=== PATIENT | male | born 1960 | race Caucasian/White ===

== ENCOUNTER 2020-10-18 20:07 | Observation (INO) | payer OTHER, SELFPAY ==
[2020-10-18 20:17] VITALS: BP 208/112; PULSE 73; RESP 18; TEMP 36.5; O2SAT 98; BMI 23.5
--- NOTE | 2020-10-18 20:24 | CTR_ITS ---
PROCEDURE INFORMATION: Exam: CT Head Without Contrast Exam date and time: 10/18/2020 8:32 PM Age: 60 years old Clinical indication: Altered mental status/memory loss; Additional info: AMS TECHNIQUE: Imaging protocol: Computed tomography of the head without contrast. Radiation optimization: All CT scans at this facility use at least one of these dose optimization techniques: automated exposure control; mA and/or kV adjustment per patient size (includes targeted exams where dose is matched to clinical indication); or iterative reconstruction. COMPARISON: No relevant prior studies available. RADIATION DOSE METRICS: Total DLP (mGy-cm): 863.06 FINDINGS: Brain: Normal. No hemorrhage. Unremarkable white matter. No mass effect. Cerebral ventricles: No ventriculomegaly. Bones/joints: Unremarkable. No acute fracture. Paranasal sinuses: There is patchy mucosal thickening in the sinuses. Mastoid air cells: Visualized mastoid air cells are well aerated. Soft tissues: Unremarkable. CT/CT head wo con* [id number] IMPRESSION: No acute intracranial abnormality. Radiation Dose CTDIVOL = (mGy): DLP = 863.06 (mGy-cm)
--- NOTE | 2020-10-18 20:24 | XR_ITS ---
WS: [id number] Exam: XR chest 1V portable [id number] Date/Time of Exam: 10/18/2020 8:32 PM Reason For Exam: ams Comparison 01/24/2016. Findings: The lungs are clear and fully expanded. Costophrenic angles are sharp. No infiltrates. Bronchovascula r relief appears normal. Cardiac silhouette is unremarkable. Bony elements are intact. XR/XR chest 1V portable [id number] IMPRESSION: Unremarkable chest radiograph.
--- NOTE | 2020-10-18 20:25 | ECG_ITS ---
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 Measurements Intervals [place] Rate: 63 P: 17 [place]: 141 QRS: 2 QRSD: 94 T: -1 QT: 381 QTc: 390 Interpretive Statements SINUS RHYTHM MODERATE VOLTAGE CRITERIA FOR LVH, CONSIDER NORMAL VARIANT [MEETS CRITERIA IN ONE OF: R(aVL), S(V1), R(V5), R(V5/V6)+S(V1)] Compared to ECG 01/24/2016 07:57:03 Sinus bradycardia no longer present Electronically Signed On 10-19-2020 17:31:58 CDT by Mary Mckeon M.D. [id number]
[2020-10-18 20:49] VITALS: BP 223/117; PULSE 71; RESP 17; O2SAT 98
[2020-10-18 21:07] LABS: Basophils % 0.3 %; Eosinophils # 0.3 10^3/uL (0.0-0.8); Eosinophils % 4.8 %; Hematocrit 41.1 % (42.0-52.0); Hemoglobin 14.4 g/dL (11.7-16.6); Lymphocytes # 1.5 10^3/uL (0.8-4.8); Lymphocytes % 25.4 %; Mean Corpuscular Hemoglobin 30.3 pg (28.0-34.0); Mean Corpuscular Volume 86.5 fL (80-94); Mean Platelet Volume 9.7 fL (7.4-10.4); Monocytes # 0.5 10^3/uL (0.2-0.9); Monocytes % 8.1 %; Neutrophils # 3.56 10^3/uL (1.8-7.7); Neutrophils % 61.1 %; Nucleated Red Blood Cells % 0 %; Platelet Count 239 10^3/cmm (130-400); Red Blood Count 4.75 10^6/uL (4.1-5.3); Red Cell Distribution Width 12.3 % (12.1-15.1); White Blood Count 5.8 10^3/uL (4.0-10.0)
--- NOTE | 2020-10-18 21:07 | ED_ITS ---
HPI - Altered Mental Status General: Chief Complaint: Altered Mental Status Stated Complaint: NEURO SYMPTOMS Time Seen by Provider: 10/18/20 20:26 Source: patient Mode of arrival: ambulatory Limitations: no limitations History of Present Illness: HPI narrative: 60-year-old male has had confusion all day along with difficulty with memory. He is not remember going to work today or getting dressed to come to the ER. He also did not realize his was working or had a job and she states she has been working for months. Here he is able answer all my questions appropriately but does not remember anything that he is done throughout the day. He has no history of memory loss like this. Denies any head injuries. He denies any headache or fever. He denies any abdominal pain. Y was in the room he started having some chest pain. Associated symptoms: Deny depression Review of Systems Const: Denies: fever(s), chills, body aches or change in appetite Eyes: Denies: blurry vision or eye discomfort ENMT: Denies: throat pain or dental pain Card: Reports: chest pain Resp: Denies: dyspnea GI: Denies: abdominal pain, nausea, vomiting or diarrhea : Denies: dysuria Musc: Denies: neck pain or back pain Skin/Breast: Denies: rash Neuro: Reports: confusion Psych: Denies: depression Hipolito/Lymph: Denies: easy bruising All/Imm: Denies: urticaria Physical Exam Const: COMMON NORMALS: no acute distress, patient oriented x3 and healthy appearing HENMT: COMMON NORMALS: normocephalic and atraumatic HEAD & SCALP: normocephalic and atraumatic Eye: COMMON NORMALS: Equal, round and reactive pupils present and EOMs intact bilaterally PUPIL: Yes Equal, round and reactive pupils present Neck/C-Spine: COMMON NORMALS: full ROM and supple Chest: COMMONS NORMALS: normal inspection of the chest and normal palpation of entire chest wall Resp: COMMON NORMALS: normal respiratory effort, No retractions, No use of accessory muscles and clear to auscultation bilaterally AUSCULTATION: clear to auscultation bilaterally Cardio: COMMON NORMALS: regular rate, regular rhythm and No murmurs present (Cardio) RATE: regular rate RHYTHM: regular rhythm GI: COMMON NORMALS: Normal to inspection, nondistended, normoactive bowel sounds present, Soft to palpation, non-tender and no masses PALPATION: Yes Soft to palpation Extremity: COMMON NORMALS: normal to inspection and full ROM Neuro: COMMON NORMALS: patient oriented x3, moves all extremities and no focal motor deficits Psych: COMMON NORMALS: mental status grossly normal, Normal thought process present and cooperative THOUGHT PROCESS: Normal thought process present Skin: COMMON NORMALS: no rashes or lesions noted and no wounds GENERAL SKIN EXAM: no rashes or lesions noted Course Vital Signs: Vital signs: Vital Signs Temperature 97.7 F 10/18/20 20:17 Pulse Rate 68 10/18/20 21:21 Respiratory Rate 13 10/18/20 21:21 Blood Pressure 196/115 10/18/20 21:21 Pulse Oximetry 97 10/18/20 21:21 MDM - Altered Mental Status MDM Narrative: Medical decision making narrative: Juanpablo presents here with altered mental status with memory loss. He has no signs of acute stroke and CT head here is normal. Blood work is all normal as well. He has no headache or neck pain or fever no signs of meningitis. I spoke to the hospitalist and will admit for observation. Lab Data: Labs: Lab Results 10/18/20 10/18/20 10/18/20 Range/Units 21:00 21:00 21:00 WBC 5.8 (4.0-10.0) 10^3/ uL RBC 4.75 (4.1-5.3) 10^6/u L Hgb 14.4 (11.7-16.6) g/dL Hct 41.1 L (42.0-52.0) % MCV 86.5 (80-94) fL MCH 30.3 (28.0-34.0) pg MCHC 35.0 (30.0-36.0) g/dL RDW 12.3 (12.1-15.1) % Plt Count 239 (130-400) 10^3/c mm MPV 9.7 (7.4-10.4) fL Neut % (Auto) 61.1 % Lymph % (Auto) 25.4 % [place] % (Auto) 8.1 % Eos % (Auto) 4.8 % Baso % (Auto) 0.3 % Neut # (Auto) 3.56 (1.8-7.7) 10^3/u L Lymph # (Auto) 1.5 (0.8-4.8) 10^3/u L [place] # (Auto) 0.5 (0.2-0.9) 10^3/u L Eos # (Auto) 0.3 (0.0-0.8) 10^3/u L Baso # (Auto) 0.0 (0.0-0.1) 10^3/u L Nucleated RBC % (a uto) 0 % Nucleated RBCs # 0.0 /100WBC PT 12.90 (12.1-14.9) SECO NDS INR 0.95 (0.8-1.2) Sodium 138 (136-145) mmol/L Potassium 4.1 (3.5-5.1) mmol/L Chloride 101 (98-107) mmol/L Carbon Dioxide 25 (22-29) mmol/L Anion Gap 16.1 (5-19) BUN 21 (8-23) mg/dL Creatinine 1.2 (0.7-1.2) mg/dL GFR Calculation 61.6 L (90-130) mL/min Glucose 104 (65-115) mg/dL Calculated Osmolal ity 289 (285-295) mOsm/k g Calcium 9.5 (8.5-10.5) mg/dL Total Bilirubin 0.5 (0.15-1.2) mg/dL AST 24 (0-40) U/L ALT 26 (0-41) U/L Alkaline Phosphata se 84 (40-130) IU/L Ammonia (16-60) umol/L Troponin T Baselin e (0-15) ng/L Total Protein 7.9 (6.6-8.7) g/dL Albumin 5.2 (3.5-5.2) g/dL Globulin 2.7 (1.3-4.6) g/dL 10/18/20 10/18/20 Range/Units 21:00 21:00 WBC (4.0-10.0) 10^3/ uL RBC (4.1-5.3) 10^6/u L Hgb (11.7-16.6) g/dL Hct (42.0-52.0) % MCV (80-94) fL MCH (28.0-34.0) pg MCHC (30.0-36.0) g/dL RDW (12.1-15.1) % Plt Count (130-400) 10^3/c mm MPV (7.4-10.4) fL Neut % (Auto) % Lymph % (Auto) % [place] % (Auto) % Eos % (Auto) % Baso % (Auto) % Neut # (Auto) (1.8-7.7) 10^3/u L Lymph # (Auto) (0.8-4.8) 10^3/u L [place] # (Auto) (0.2-0.9) 10^3/u L Eos # (Auto) (0.0-0.8) 10^3/u L Baso # (Auto) (0.0-0.1) 10^3/u L Nucleated RBC % (a uto) % Nucleated RBCs # /100WBC PT (12.1-14.9) SECO NDS INR (0.8-1.2) Sodium (136-145) mmol/L Potassium (3.5-5.1) mmol/L Chloride (98-107) mmol/L Carbon Dioxide (22-29) mmol/L Anion Gap (5-19) BUN (8-23) mg/dL Creatinine (0.7-1.2) mg/dL GFR Calculation (90-130) mL/min Glucose (65-115) mg/dL Calculated Osmolal ity (285-295) mOsm/k g Calcium (8.5-10.5) mg/dL Total Bilirubin (0.15-1.2) mg/dL AST (0-40) U/L ALT (0-41) U/L Alkaline Phosphata se (40-130) IU/L Ammonia 30 (16-60) umol/L Troponin T Baselin e 11 (0-15) ng/L Total Protein (6.6-8.7) g/dL Albumin (3.5-5.2) g/dL Globulin (1.3-4.6) g/dL Imaging Data^: CT Head: Radiologist's impression: [address] [address] [address] Scan Report Signed Patient: Juanpablo Bales Unit #: [id number] : 1960 Age/Sex: 60 / M ADM Date: 10/18/20 Loc: ER Room/Bed: Attending Dr: Ordering Provider/Ordering MD: Marvin Biggs MD Date of Service: 10/18/20 Procedure(s): CT head wo con* [id number] Accession Number(s): [id number] Report Number: [id number] PROCEDURE INFORMATION: Exam: CT Head Without Contrast Exam date and time: 10/18/2020 8:32 PM Age: 60 years old Clinical indication: Altered mental status/memory loss; Additional info: AMS TECHNIQUE: Imaging protocol: Computed tomography of the head without contrast. Radiation optimization: All CT scans at this facility use at least one of these dose optimization techniques: automated exposure control; mA and/or kV adjustment per patient size (includes targeted exams where dose is matched to clinical indication); or iterative reconstruction. COMPARISON: No relevant prior studies available. RADIATION DOSE METRICS: Total DLP (mGy-cm): 863.06 FINDINGS: Brain: Normal. No hemorrhage. Unremarkable white matter. No mass effect. Cerebral ventricles: No ventriculomegaly. Bones/joints: Unremarkable. No acute fracture. Paranasal sinuses: There is patchy mucosal thickening in the sinuses. Mastoid air cells: Visualized mastoid air cells are well aerated. Soft tissues: Unremarkable. CT/CT head wo con* [id number] cx: Attestation: I personally reviewed and interpreted this imaging study as follows: My impression: no acute abnormality EKG Data^: EKG 1: Attestation: I personally reviewed and interpreted this EKG as follows: EKG interpretation date: 10/18/20 EKG interpretation time: 21:16 Interpretation: bsr gr [address] or t wave abnormalities qrs 94 qtc 388 Discharge Plan Discharge Prescriptions: No Action Allergy 1 tab PO DAILY@0700 RF: 0 Advil 200 mg Tablet 200 - 400 mg PO Q6H PRN (Reason: ATHRITIS) RF: 0 Coding Level of Care Code ED Public Relations Sales Marketing for Chg Fwd Exam Comprehensive
[2020-10-18 21:20] LABS: INR 0.95 (0.8-1.2)
[2020-10-18 21:21] VITALS: BP 196/115; PULSE 68; RESP 13; O2SAT 97
[2020-10-18 21:24] LABS: Ammonia 30 umol/L (16-60)
[2020-10-18 21:27] LABS: Alanine Aminotransferase 26 U/L (0-41); Albumin Level 5.2 g/dL (3.5-5.2); Alkaline Phosphatase 84 IU/L (40-130); Anion Gap 16.1 (5-19); Aspartate Amino Transferase 24 U/L (0-40); Blood Urea Nitrogen 21 mg/dL (8-23); Calcium 9.5 mg/dL (8.5-10.5); Carbon Dioxide 25 mmol/L (22-29); Chloride 101 mmol/L (98-107); Globulin 2.7 g/dL (1.3-4.6); Glomerular Filtration Rate 61.6 mL/min (90-130); Glucose 104 mg/dL (65-115); Osmolality Calculated 289 mOsm/kg (285-295); Potassium 4.1 mmol/L (3.5-5.1); Sodium 138 mmol/L (136-145); Total Bilirubin 0.5 mg/dL (0.15-1.2); Total Protein 7.9 g/dL (6.6-8.7)
[2020-10-18 21:30] LABS: Troponin(5th) Baseline 11 ng/L (0-15)
--- NOTE | 2020-10-18 22:10 | PM.HP ---
Providers/Chief Complaint Primary Care Provider: Denis Stout DO Chief Complaint: NEURO SYMPTOMS History of Present Illness Juanpablo Bales is a 60 year old male who does not have significant past medical or surgical history presented today after a brief episode of confusion. is at the bedside who is stating that today when she was at work at [employer], she checked her phone around 4-5 PM and noticed 5 missed calls of her which made her very anxious. When she called back, her was very confused and was not making any sense, he had no clue that his currently works at [employer] which she has been for last few years, he was not able to recall events from the day that he came back from his work etc. called her sister to go check on Mr. Bales. No strokelike symptoms were witnessed. 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 He drinks occasionally, last beer was 2 days ago, no recent fever, productive cough, abdominal pain or dysuria. Of note, has been noticing sleep apnea spells of her , excessive snoring at night and lethargy throughout the day, however Mr. Bales is attributing his fatigue and lethargy to being overactive. Diagnostics in the ER showed hypertensive urgency(196/115 mmHg) for which he received labetalol 10 mg, normal CBC and BMP, TSH normal B12 low normal, abnormal UA, CT head unremarkable Requested urine culture added B12 p.o. regimen and thiamine Review of Systems Const: Reports: body aches, fatigue and malaise Eyes: Denies: change in vision ENMT: Denies: throat pain Card: Denies: chest pain Resp: Denies: dyspnea GI: Denies: abdominal pain : Denies: flank pain Musc: Reports: back pain and muscle cramps Skin/Breast: Denies: rash Neuro: Denies: headache(s) Psych: Denies: anxiety Endo: Denies: polyuria Hipolito/Lymph: Denies: easy bruising All/Imm: Denies: urticaria Medications/Allergies Home Medications Medication Instructions Recorded Confirmed Last Taken Type Allergy 1 tab PO DAILY@0700 04/10/18/20 10/18/20 History ibuprofen [Advil] 200 - 400 mg PO Q6H PRN 10/18/20 10/18/20 10/18/20 History Allergies Allergy/AdvReac Type Severity Reaction Status Date / Time No Known Allergies Allergy Verified 10/18/20 20:17 PFSH Acute PFSH: Medical History No pertinent past medical history Surgical History No pertinent past surgical history Family History Other Family history non-contributory Social History Smoking and tobacco status: never smoked Alcohol intake: current Alcohol intake frequency: few times a month Alcohol type: beer Substance/Drug Use: never Household members: spouse Housing: House Vitals/I&O/Wt Last Vital Signs Temp 97.7 F 10/18/20 20:17 Pulse 68 10/18/20 21:21 Resp 13 10/18/20 21:21 BP 196/115 10/18/20 21:21 Pulse Ox 97 10/18/20 21:21 Weight last 48 hrs Weight 62.142 kg Physical Exam Narrative: EXAM NARRATIVE: Patient was laying supine when entered the room at the bedside Appears stated age Very somnolent however was able to answer my questions appropriately S1, S2 no signs of heart failure Abdomen soft nontender No active neurological deficits Bilateral conjunctival hyperemia Lower extremity no edema gangrene or ulcer Appropriate mood and affect No acute respiratory distress Bilateral breath sounds without adventitious rhonchi or crackles No active signs of meningitis Bradycardia heart rate in 60s on telemetry Data : 10/18/20 21:00 10/18/20 21:00 A&P Assessment and plan (1) Fatigue: Status: Acute (2) Delirium: Status: Acute Additional A&P Information Acute delirium Abnormal UA noted requested urine cultures we will start him on ceftriaxone Patient back to baseline however very drowsy, positive history for excessive snoring at night and lethargy throughout the day, he will need outpatient sleep study Low normal B12 will add p.o. cyanocobalamin regimen Normal TSH, We will add thiamine, drinks alcohol occasionally CT head unremarkable, patient considers himself very active, and he loves to cut wood, Hypertensive urgency, He will need at least 2-3 antihypertensives for now I would use lisinopril and amlodipine and monitor his blood pressure if it stays high would recommend diuretic regimen TSH normal Would add drug screen, noticed bilateral conjunctival hyperemia Reproducible left-sided chest pain, I will give him ketorolac x1, troponin unremarkable, EKG sinus bradycardia, no signs of intracranial hypertension Full code Cardiac diet DVT prophylaxis Lovenox Attestations Medical Necessity Statement*: Anticipating discharge in less than 48 hours will need overnight monitoring because of acute delirious episode, hypertensive urgency and bradycardia Time Spent in Patient Care: 30mins Coding Level of Care Code Acute Body Repairer for Ana Polanco Diagnoses Fatigue R53.83 Delirium R41.0
[2020-10-18] MEDS: labetalol 5 mg/mL SDV 20mL 10 MG IVP (22:41)
[2020-10-18 22:43] VITALS: BP 201/102; PULSE 57; RESP 14; O2SAT 96
[2020-10-18 22:55] VITALS: BP 171/94; PULSE 60; RESP 16; TEMP 36.6; O2SAT 97
[2020-10-18 23:55] VITALS: BP 155/90; PULSE 65; RESP 18; TEMP 36.6; O2SAT 97
[2020-10-19] VITALS (8 sets, daily range): BP systolic 114–173; BP diastolic 71–85; PULSE 55–78; RESP 14–18; TEMP 36.3–37.1; O2SAT 92–97
[2020-10-19] MEDS: lisinopril 10 mg Tablet PO ×2 (00:10→08:36)
[2020-10-19 00:12] LABS: Glucose Point of Care 186 mg/dL (70-110)
[2020-10-19 00:21] LABS: Thyroid Stimulating Hormone 3.47 uIU/mL (0.27-4.20); Vitamin B12 328 pg/mL (232-1245)
[2020-10-19 00:41] LABS: Add Urine Microscopic? YES; Bacteria Urine 1+ /hpf; Bilirubin Urine Neg (Negative); Blood Urine Neg (Negative); Glucose Urine UA Norm (Normal); Ketones Urine Negative (Negative); Leukocyte Esterase Urine Trace (Negative); Nitrate Urine Negative (Negative); Protein Urine Neg (Negative); RBC Urine 0-4 /hpf (0-2); Squamous Epithelial Cell Urine 0-4 /hpf (0-5); Urine Appearance Clear (CLEAR); Urine Color Yellow (Yellow); Urobilinogen Urine Norm (Negative); pH Urine 5 (5-7)
--- NOTE | 2020-10-19 03:05 | ECG_ITS ---
[facility] ED Test Date: 2020-10-19 Pat Name: Juanpablo Bales Department: Room: 255 Gender: Male Community Support Professional: : 1960 Requested By: Marvin Biggs Order Number: [id number] Jose Eduardo MD: Mary Mckeon M.D. Measurements Intervals [place] Rate: 56 P: 50 [place]: 154 QRS: 26 QRSD: 95 T: 22 QT: 396 QTc: 385 Interpretive Statements SINUS BRADYCARDIA NONSPECIFIC T-WAVE ABNORMALITY Compared to ECG 10/18/2020 21:16:25 T-wave abnormality now present Sinus rhythm no longer present Electronically Signed On 10-19-2020 17:46:38 CDT by Mary Mckeon M.D. [id number]
[2020-10-19 03:22] LABS: Troponin 5 6HR 13.06 ng/L (0-15); Troponin 5 6HR Delta 2.06 ng/L (0-12)
[2020-10-19 04:12] LABS: Estmated Average Glucose 108; Hemoglobin A1C 5.4 % (4.0-6.0)
[2020-10-19 05:09] LABS: ABG PCO2 47.6 mmHg (35-45); ABG PH Result 7.39 (7.35-7.45); Arterial Blood Gas Hematocrit 42.1 % (42-52); Base Excess ABG 2.6 mmol/L (-2.0-2.0); Blood Gas Operator Identificat JB; Blood Gas Sample Site Brachial, right; Blood Gas Sample Type Arterial; HCO3 ABG 28.4 mmol/L (22-26); Oxygen Device ROOM AIR; PO2 ABG 71.2 mmHg (80.0-100.0)
[2020-10-19] MEDS: cefTRIAXone 1,000 MG in sodium chloride 0.9% (plus) 50 ML 100 MG IV (06:11)
[2020-10-19] MEDS: enoxaparin 40 mg/0.4 mL Syringe SUBCUT (06:11)
[2020-10-19] MEDS: cyanocobalamin 1,000 mcg Tablet 1000 MCG PO (08:36)
[2020-10-19] MEDS: amlodipine 10 mg Tablet PO (08:36)
--- NOTE | 2020-10-19 12:57 | MRR_ITS ---
PROCEDURE INFORMATION: Exam: MR Head Without Contrast Exam date and time: 10/19/2020 6:20 PM Age: 60 years old Clinical indication: Pain; Headache; Additional info: Possible TIA TECHNIQUE: Imaging protocol: MR of the head without contrast. Total images: 224 COMPARISON: CT head wo con* [id number] 10/18/2020 8:47 PM FINDINGS: Brain: No abnormal signal on the diffusion-weighted sequence to suggest restrictive diffusion or cytotoxic edema thus no evidence of active or acute intracranial pathologic process. No acute or subacute infarction, hemorrhagic event, mass or neoplastic process, vascular malformation, generalized edema or demyelination evident. Mild small vessel ischemic disease with senile periventricular leukomalacia. Prominent Virchow Mal spaces. No visible amyloid or hemosiderin deposits. Cerebral ventricles: Normal. No ventriculomegaly. Bones/joints: Unremarkable. Paranasal sinuses: Mild chronic left maxillary, ethmoid, and sphenoid sinusitis. No visible active paranasal sinus disease or mastoiditis within the [id number]. Mastoid air cells: Normal as visualized. No mastoid effusion. Orbital cavity: Orbital structures as imaged intact. Soft tissues: Unremarkable. MR/MR head wo con* [id number] IMPRESSION: 1. Currently no visible evidence for acute or active intracranial pathologic process. 2. Mild small vessel ischemic disease with senile periventricular leukomalacia. 3. Mild chronic left maxillary, ethmoid, and sphenoid sinusitis.
[2020-10-19] MEDS: lisinopril 20 mg Tablet PO (13:37)
--- NOTE | 2020-10-19 17:03 | PM.PN ---
Subjective Subjective: Interval history: Admitted overnight for confusion. H&P and labs noted. Currently lying comfortably in bed with at bedside. Denies any nausea, vomiting, headache, chest pain. Complaining of feeling tired. Not confused anymore. Moving all 4 limbs appropriately. Family anxious regarding etiology. States at baseline he is a very active person does not have any angina or chest pressure. Non-smoker. Vitals/I&O/Wt Last Vital Signs Temp 97.4 F L 10/19/20 16:00 Pulse 55 L 10/19/20 16:00 Resp 14 10/19/20 16:00 BP 122/73 10/19/20 16:00 Pulse Ox 95 10/19/20 16:00 10/19/20 10/19/20 10/19/20 06:59 14:59 22:59 Intake Total 50 / 50 840 / 840 Output Total 0 / 0 Balance 50 / 50 840 / 840 Weight last 48 hrs Weight 62.142 kg Physical Exam Narrative: EXAM NARRATIVE: General: No acute distress, AO x3 HEENT: PERRLA, pupils bilaterally equal and reactive Chest: Normal vesicular breath sounds, no added sounds, equal good air entry bilaterally CVS: S1-S2 regular, no murmurs, no tachycardia, no gallops, no rubs Abdomen: Soft, nontender, no organomegaly, bowel sounds present Neuro: No focal deficits, no facial deformity, AO x3, power 5/5 in all limbs Data : 10/18/20 21:00 10/18/20 21:00 A&P Assessment and plan (1) Pre-syncope: Status: Acute (2) Fatigue: Status: Acute (3) Hypertension: Status: Acute Additional A&P Information Acute delirium/presyncope on admission: Most likely secondary to hypertensive urgency. Cannot rule out TIA. No signs of angina or arrhythmia overnight. No signs of UTI. Patient does not have any dysuria. Stop ceftriaxone. Check MRI to rule out TIA. Echocardiogram. CT head on admission negative for any acute pathology. Hypertension: Hypertensive urgency resolved. Does not have a past medical history of hypertension. Continue with amlodipine 10 mg. Increase lisinopril. Goal blood pressure 20% of presenting blood pressure. Patient will most likely need sleep study and the stress test was done as an outpatient. Full code Cardiac diet DVT prophylaxis Lovenox Attestations Medical Necessity Statement*: Requires further hospitalization for work-up of presyncope. Time Spent in Patient Care: Greater than 35 minutes (>than 50% of time spent in counselling and/or direct pt care on unit). Coding Level of Care Code Acute Database Marketing Specialist for Chg Fwd Diagnoses Pre-syncope R55 Fatigue R53.83 Hypertension I10
--- NOTE | 2020-10-19 18:24 | PC.NURSE ---
AT APPROX. 1800 PT TRANSPORTED TO MRI
[2020-10-19 18:53] LABS: Amphetamines Screen Urine Negative (Negative); Barbiturates Screen Urine Negative (Negative); Benzodiazepines Screen Urine Negative (Negative); Cocaine Screen Urine Negative (Negative); Opiate Screen Urine Negative (Negative); PCP Screen Urine Negative (Negative); THC Screen Urine Negative (Negative)
[2020-10-19 19:10] LABS: Iron 90 ug/dL (59-158); Percent Saturation 32.7 % (20-50); Total Iron Binding Capacity 275 mcg/dl; Unsaturated Iron Binding 185 ug/dL (112-347)
[2020-10-19 19:19] LABS: Cholesterol 185 mg/dL (0-200); HDL Cholesterol 42 mg/dL (60-100); LDL Cholesterol Calculated 114 mg/dL (50-129); Thyroid Stimulating Hormone 3.64 uIU/mL (0.27-4.20); Triglycerides 147 mg/dL (0-150); VLDL Cholestrol Calculation 29 mg/dL (0-30)
[2020-10-20 00:16] VITALS: BP 130/71; PULSE 63; RESP 17; TEMP 36.5; O2SAT 95
[2020-10-20 04:06] VITALS: BP 126/76; PULSE 76; RESP 17; TEMP 36.6; O2SAT 95
[2020-10-20] MEDS: enoxaparin 40 mg/0.4 mL Syringe SUBCUT (04:33)
--- NOTE | 2020-10-20 07:00 | USCV_ITS ---
Juanpablo Bales Age: 60 Gender: M : 1960 Exam Date: 10/20/2020 06:59 Ordering Phys: Robe Garner MD Technologist: Exam Location: [facility] [place] Indication: TIA BP: 130 / 73 HR: 55 Rhythm: Sinus Technical Quality: Good MEASUREMENTS (Male / Female) Normal Values 2D ECHO LV Diastolic Diameter PLAX 4.1 cm 4.2 - 5.9 / 3.9 - 5.3 cm LV Systolic Diameter PLAX 2.5 cm IVS Diastolic Thickness 1.1 cm 0.6 - 1.0 / 0.6 - 0.9 cm IVS Systolic Thickness 1.5 cm LVPW Diastolic Thickness 1.2 cm 0.6 - 1.0 / 0.6 - 0.9 cm LVPW Systolic Thickness 1.6 cm LVOT Diameter 2.0 cm LV Ejection Fraction 2D Teich 69.7 % LV Ejection Fraction MOD 2C 64.5 % LV Ejection Fraction 2C AL 64.5 % LA Diameter 3.5 cm LA Width 3.8 cm LA Height 4.7 cm RA Width 3.4 cm RA Height 4.8 cm M-MODE LV Diastolic Diameter MM 4.8 cm 4.2 - 5.9 / 3.9 - 5.3 cm LV Systolic Diameter MM 3.1 cm LV Ejection Fraction MM Teich 65.3 % IVS Diastolic Thickness MM 1.3 cm 0.6 - 1.0 / 0.6 - 0.9 cm IVS Systolic Thickness MM 1.7 cm LVPW Diastolic Thickness MM 1.0 cm 0.6 - 1.0 / 0.6 - 0.9 cm LVPW Systolic Thickness MM 1.8 cm RV Diastolic Diameter MM 1.6 cm Aortic Annulus Diameter 3.4 cm LA Ao Ratio MM 1.2 MV E Point Septal Separation 0.9 cm DOPPLER AV Peak Velocity 131.0 cm/s LVOT Peak Velocity 103.0 cm/s AV Area Cont Eq vti 2.9 cm squared AV Area Cont Eq pk 2.5 cm squared MV Area PHT 5.0 cm squared Mitral E to A Ratio 1.2 MV E' Velocity 42.0 cm/s Mitral E to MV E' Ratio 9.4 Mitral E to LV E' Lateral Ratio 7.7 Mitral E to LV E' Septal Ratio 12.2 TR Peak Velocity 158.3 cm/s TR Peak Gradient 10.0 mmHg TV Peak E Velocity 80.0 cm/s Right Atrial Pressure 3.0 mmHg Pulmonary Artery Systolic Pressu 13.0 mmHg PV Peak Velocity 95.0 cm/s FINDINGS Left Ventricle Normal left ventricular size, systolic function and wall thickness, with no regional wall motion abnormalities. Left ventricular ejection fraction is estimated at 65 %. Normal diastolic function. Right Ventricle Normal right ventricular size and systolic function. Right ventricular systolic pressure 13 mmHg. Right Atrium Normal right atrial size. Left Atrium Normal left atrial size. Mitral Valve Structurally normal mitral valve. No mitral valve stenosis. Trace mitral valve regurgitation. Aortic Valve Aortic valve not well visualized. Probably trileaflet aortic valve. No aortic valve stenosis. No aortic valve regurgitation. Tricuspid Valve Structurally normal tricuspid valve. Trace tricuspid valve regurgitation. Pulmonic Valve Pulmonic valve not well visualized. No pulmonary valve stenosis. No significant pulmonary valve regurgitation. Pericardium No pericardial effusion. Aorta Normal size aortic root and proximal ascending aorta. CONCLUSIONS 1. Normal left ventricular size, systolic function and wall thickness, with no regional wall motion abnormalities. Left ventricular ejection fraction is estimated at 65 %. Normal diastolic function. 2. Normal right ventricular size and systolic function. 3. No significant valvular abnormality. 4. Normal pulmonary artery pressure. 5. No prior similar studies to compare. Mary Mckeon MD (Electronically Signed) Final Date: 20 October 2020 12:26 S
[2020-10-20 07:58] VITALS: BP 125/75; PULSE 63; RESP 16; TEMP 36.7; O2SAT 93
[2020-10-20] MEDS: lisinopril 20 mg Tablet 40 MG PO (08:24)
[2020-10-20] MEDS: amlodipine 10 mg Tablet PO (08:25)
[2020-10-20] MEDS: cyanocobalamin 1,000 mcg Tablet 1000 MCG PO (08:25)
--- NOTE | 2020-10-20 10:12 | P.DS_ITS ---
Discharge Providers Date of Admission: 10/19/20 03:50 Date of Discharge: October 20, 2020 Attending Provider at Admission: Stanley Gill MD Attending Provider at Discharge: Robe Garner MD Primary Care Provider: Denis Stout DO Diagnoses at Discharge Discharge Diagnosis (1) Pre-syncope: Status: Acute (2) Fatigue: Status: Acute (3) Hypertension: Status: Acute Reason for Visit Reason for Visit: NEURO SYMPTOMS Hospital Course Hospital Course Juanpablo Bales is a 60 year old male who does not have significant past medical or surgical history presented today after a brief episode of confusion. is at the bedside who is stating that today when she was at work at [employer], she checked her phone around 4-5 PM and noticed 5 missed calls of her which made her very anxious. When she called back, her was very confused and was not making any sense, he had no clue that his currently works at [employer] which she has been for last few years, he was not able to recall events from the day that he came back from his work etc. called her sister to go check on Mr. Bales. No strokelike symptoms were witnessed. 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 He drinks occasionally, last beer was 2 days ago, no recent fever, productive cough, abdominal pain or dysuria. Of note, has been noticing sleep apnea spells of her , excessive snoring at night and lethargy throughout the day, however Mr. Bales is attributing his fatigue and lethargy to being overactive. On presentation to the ER patient was hypertensive urgency. He was admitted to the hospital for further evaluation of confusion and delirium. He was started on 2 hypertensive including amlodipine and lisinopril. His blood pressure came down appropriately. Other causes of her symptoms including a stroke was ruled out with a negative MRI, redness ruled out with a stable telemetry during hospitalization. Echocardiogram was done which was within normal limits as well. He is on discharge hemodynamic stable condition with advised to take amlodipine and lisinopril daily going forward and to maintain a blood pressure diary for next 2 weeks and follow-up with his primary care provider for a repeat blood pressure check and adjustment of medications as needed along with BMP. Patient is also due date a possible cardiac stress test as an outpatient. Physical Exam Narrative: EXAM NARRATIVE: General: No acute distress, AO x3 HEENT: PERRLA, pupils bilaterally equal and reactive Chest: Normal vesicular breath sounds, no added sounds, equal good air entry bilaterally CVS: S1-S2 regular, no murmurs, no tachycardia, no gallops, no rubs Abdomen: Soft, nontender, no organomegaly, bowel sounds present Neuro: No focal deficits, no facial deformity, AO x3, power 5/5 in all limbs Discharge Data Data Completed and Pending: Completed Studies During Hospitalization Category Date Time Status CT head wo con* 7 0450 Urgent Cat Scan 10/18/20 20:24 Completed XR chest 1V viviana ble [id number] Urgent Exams 10/18/20 20:24 Completed MR head wo con* 7 [id number] Routine MRI 10/19/20 12:57 Completed Pending at discharge Category Date Time Status Urine Culture Sta t Lab 10/19/20 00:19 Results CV echo complete* [id number] Routine Ultrasound 10/20/20 07:00 Taken Labs from last 24 hours 10/19/20 10/19/20 10/19/20 02:47 02:47 00:19 Iron 90 TIBC 275 % Saturation 32.7 Unsat Iron Binding 185 Triglycerides 147 Cholesterol 185 LDL Cholesterol, C alc 114 Total VLDL Cholest reji 29 HDL Cholesterol 42 L Cholesterol/HDL Ra otoniel 4.40 TSH 3.64 Urine Opiates Scre en Negative Ur Barbiturates Sc reen Negative Ur Phencyclidine S crn Negative Ur Amphetamines Sc reen Negative U Benzodiazepines Scrn Negative Urine Cocaine Scre en Negative U Marijuana (THC) Screen Negative Addt'l Data from Hospital Stay: Laboratory Results WBC 5.8 10^3/uL (4.0- 10.0) 10/18/20 21:00 RBC 4.75 10^6/uL (4.1 -5.3) 10/18/20 21:00 Hgb 14.4 g/dL (11.7-1 6.6) 10/18/20 21:00 Hct 41.1 % (42.0-52.0 ) L 10/18/20 21:00 MCV 86.5 fL (80-94) 10/18/20 21:00 MCH 30.3 pg (28.0-34. 0) 10/18/20 21:00 MCHC 35.0 g/dL (30.0-3 6.0) 10/18/20 21:00 RDW 12.3 % (12.1-15.1 ) 10/18/20 21:00 Plt Count 239 10^3/cmm (130 -400) 10/18/20 21:00 MPV 9.7 fL (7.4-10.4) 10/18/20 21:00 Neut % (Auto) 61.1 % 10/18/20 21:00 Lymph % (Auto) 25.4 % 10/18/20 21:00 [place] % (Auto) 8.1 % 10/18/20 21:00 Eos % (Auto) 4.8 % 10/18/20 21:00 Baso % (Auto) 0.3 % 10/18/20 21:00 Neut # (Auto) 3.56 10^3/uL (1.8 -7.7) 10/18/20 21:00 Lymph # (Auto) 1.5 10^3/uL (0.8- 4.8) 10/18/20 21:00 [place] # (Auto) 0.5 10^3/uL (0.2- 0.9) 10/18/20 21:00 Eos # (Auto) 0.3 10^3/uL (0.0- 0.8) 10/18/20 21:00 Baso # (Auto) 0.0 10^3/uL (0.0- 0.1) 10/18/20 21:00 Nucleated RBC % (a uto) 0 % 10/18/20 21:00 Nucleated RBCs # 0.0 /100WBC 10/18/20 21:00 PT 12.90 SECONDS (12 .1-14.9) 10/18/20 21:00 INR 0.95 (0.8-1.2) 10/18/20 21:00 Specimen Type Arterial 10/19/20 04:46 Sample Site Brachial, right 10/19/20 04:46 ABG pH 7.39 (7.35-7.45) 10/19/20 04:46 ABG pCO2 47.6 mmHg (35-45) H 10/19/20 04:46 ABG pO2 71.2 mmHg (80.0-1 00.0) L 10/19/20 04:46 ABG HCO3 28.4 mmol/L (22-2 6) H 10/19/20 04:46 ABG Base Excess 2.6 mmol/L (-2.0- 2.0) H 10/19/20 04:46 Judah Test N/a 10/19/20 04:46 Hematocrit 42.1 % (42-52) 10/19/20 04:46 O2 Delivery Device Room air 10/19/20 04:46 FiO2 21.0 % 10/19/20 04:46 Pool Cleaner ID Adonay 10/19/20 04:46 Sodium 138 mmol/L (136-1 45) 10/18/20 21:00 Potassium 4.1 mmol/L (3.5-5 .1) 10/18/20 21:00 Chloride 101 mmol/L (98-10 7) 10/18/20 21:00 Carbon Dioxide 25 mmol/L (22-29) 10/18/20 21:00 Anion Gap 16.1 (5-19) 10/18/20 21:00 BUN 21 mg/dL (8-23) 10/18/20 21:00 Creatinine 1.2 mg/dL (0.7-1. 2) 10/18/20 21:00 GFR Calculation 61.6 mL/min (90-1 30) L 10/18/20 21:00 Glucose 104 mg/dL (65-115 ) 10/18/20 21:00 POC Glucose 186 mg/dL (70-110 ) H 10/19/20 00:08 Estimat Average Gl ucose 108 10/19/20 02:47 Hemoglobin A1c 5.4 % (4.0-6.0) 10/19/20 02:47 Calculated Osmolal ity 289 mOsm/kg (285- 295) 10/18/20 21:00 Calcium 9.5 mg/dL (8.5-10 .5) 10/18/20 21:00 Iron 90 ug/dL (59-158) 10/19/20 02:47 TIBC 275 mcg/dl 10/19/20 02:47 % Saturation 32.7 % (20-50) 10/19/20 02:47 Unsat Iron Binding 185 ug/dL (112-34 7) 10/19/20 02:47 Total Bilirubin 0.5 mg/dL (0.15-1 .2) 10/18/20 21:00 AST 24 U/L (0-40) 10/18/20 21:00 ALT 26 U/L (0-41) 10/18/20 21:00 Alkaline Phosphata se 84 IU/L (40-130) 10/18/20 21:00 Ammonia 30 umol/L (16-60) 10/18/20 21:00 Troponin T Baselin e 11 ng/L (0-15) 10/18/20 21:00 Troponin T Hi Sens 6Hr 13.06 ng/L (0-15) 10/19/20 02:47 Troponin T Hi Sens 6Hr Delta 2.06 ng/L (0-12) 10/19/20 02:47 Total Protein 7.9 g/dL (6.6-8.7 ) 10/18/20 21:00 Albumin 5.2 g/dL (3.5-5.2 ) 10/18/20 21:00 Globulin 2.7 g/dL (1.3-4.6 ) 10/18/20 21:00 Triglycerides 147 mg/dL (0-150) 10/19/20 02:47 Cholesterol 185 mg/dL (0-200) 10/19/20 02:47 LDL Cholesterol, C alc 114 mg/dL (50-129 ) 10/19/20 02:47 Total VLDL Cholest reji 29 mg/dL (0-30) 10/19/20 02:47 HDL Cholesterol 42 mg/dL (60-100) L 10/19/20 02:47 Cholesterol/HDL Ra otoniel 4.40 mg/dL (1.0-5 .00) 10/19/20 02:47 Vitamin B12 328 pg/mL (232-12 45) 10/18/20 21:00 TSH 3.64 uIU/mL (0.27 -4.20) 10/19/20 02:47 Urine Color Yellow (Yellow) 10/19/20 00:19 Urine Appearance Clear (CLEAR) 10/19/20 00:19 Urine pH 5 (5-7) 10/19/20 00:19 Ur Specific Gravit y 1.010 (1.005-1.0 30) 10/19/20 00:19 Urine Protein Neg (Negative) 10/19/20 00:19 Urine Glucose (UA) Norm (Normal) 10/19/20 00:19 Urine Ketones Negative (Negati ve) 10/19/20 00:19 Urine Blood Neg (Negative) 10/19/20 00:19 Urine Nitrate Negative (Negati ve) 10/19/20 00:19 Urine Bilirubin Neg (Negative) 10/19/20 00:19 Urine Urobilinogen Norm mg/dL (Negat sasha) 10/19/20 00:19 Ur Leukocyte Fartun ase Trace (Negative) H 10/19/20 00:19 Urine RBC 0-4 /hpf (0-2) H 10/19/20 00:19 Urine WBC 5-10 /hpf (0-5) H 10/19/20 00:19 Ur Squamous Epith Cells 0-4 /hpf (0-5) H 10/19/20 00:19 Amorphous Sediment Not Reportable 10/19/20 00:19 Urine Bacteria 1+ /hpf (NONE) H 10/19/20 00:19 Urine Opiates Scre en Negative ng/mL (N egative) 10/19/20 00:19 Ur Barbiturates Sc reen Negative ng/mL (N egative) 10/19/20 00:19 Ur Phencyclidine S crn Negative ng/mL (N egative) 10/19/20 00:19 Ur Amphetamines Sc reen Negative ng/mL (N egative) 10/19/20 00:19 U Benzodiazepines Scrn Negative ng/mL (N egative) 10/19/20 00:19 Urine Cocaine Scre en Negative ng/mL (N egative) 10/19/20 00:19 U Marijuana (THC) Screen Negative ng/mL (N egative) 10/19/20 00:19 Impressions Chest X-Ray 10/18/20 20:24 IMPRESSION: Unremarkable chest radiograph. Head CT 10/18/20 20:24 IMPRESSION: No acute intracranial abnormality. Radiation Dose CTDIVOL = (mGy): DLP = 863.06 (mGy-cm) Head MRI 10/19/20 12:57 IMPRESSION: 1. Currently no visible evidence for acute or active intracranial pathologic process. 2. Mild small vessel ischemic disease with senile periventricular leukomalacia. 3. Mild chronic left maxillary, ethmoid, and sphenoid sinusitis. Vitals: Last Vital Signs Temp 98.1 F 10/20/20 07:58 Pulse 63 10/20/20 07:58 Resp 16 10/20/20 07:58 BP 125/75 10/20/20 07:58 Pulse Ox 93 10/20/20 07:58 Discharge Plan Discharge Patient Disposition: Home Condition: Stable Prescriptions: New lisinopril 20 mg Tablet 40 mg PO DAILY Qty: 60 RF: 0 amlodipine 10 mg Tablet 10 mg PO DAILY Qty: 30 RF: 0 Continued Allergy 1 tab PO DAILY@0700 RF: 0 Advil 200 mg Tablet 200 - 400 mg PO Q6H PRN (Reason: ATHRITIS) RF: 0 Discharge Orders: Discharge Order (Routine); Ordered 10/20/20 Ordered By: Robe Garner Referrals: Denis Stout DO [Primary Care Provider] - 11/03/20 9:30 am Discharge Diet: Cardiac Discharge Activity: Resume usual activity Patient Instructions: Lisinopril (By mouth), Amlodipine (By mouth), Hypertension, Opioid Safety Activity Restrictions/Additional Instructions: Please check your BP at home and maintain BP diary. Follow with BP diary with your PCP in 2 weeks for further adjustment of meds. Repeat BMP in 2 weeks Outpatient Stress test Discharge Attestations Time Spent in Discharge Care*: greater than 30 min Specific Discharge Activities: educating patient, educating and/or supporting family/caregiver, discussing with case resolution specialist/social workers/dc planners, documenting/other paperwork and evaluating patient/reviewing data Status at Discharge: Cognitive status at discharge: cognitively intact , Behavioral status at discharge: cooperative , Functional status at discharge: independent ambulation Overall status at discharge: patient is back to baseline Quality Metrics Clinical Quality Measures During this hospital stay, did patient experience: None Coding Level of Care Code Acute Chg FW DC note Diagnoses Pre-syncope R55 Fatigue R53.83 Hypertension I10
[2020-10-20 11:26] VITALS: BP 125/75; PULSE 63; RESP 16; TEMP 36.7; O2SAT 93
== END 2020-10-20 11:27 | disposition home or self-care (01) ==
LOC: ER 22:16 → MEDSURG 10-19 06:49
PROVIDERS: Admitting Provider Internal Medicine; Emergency Provider Emergency Medicine; PCP Internal Medicine; Visit Provider Student in an Organized Health Care Education/Training Program
DX: R55 Syncope and collapse (principal); I10 Essential (primary) hypertension; R53.83 Other fatigue; R41.0 Disorientation, unspecified
CPT/HCPCS: 36415; 36416; 70450; 70551; 71045; 80053; 80061; 80306; 81001; 82140; 82607; 82803; 82962; 83036; 83540; 83550; 84443; 84484; 85025; 85610; 87086; 93005; 93306; 96365; 96372; 99285; G0378; J0696; J1650; J3490

== ENCOUNTER 2021-02-25 07:55 | Outpatient (CLI) | payer OTHER, SELFPAY | END 2021-02-25 07:56 | disposition home or self-care (01) | LOC: SLEEP 08:00 | PROVIDERS: PCP Internal Medicine; Visit Provider Nurse Practitioner Family | DX: G47.10 Hypersomnia, unspecified (principal); R06.83 Snoring; R53.83 Other fatigue | CPT/HCPCS: 95810 ==

== ENCOUNTER 2021-12-25 19:53 | Inpatient (IN) | payer OTHER, SELFPAY ==
[2021-12-25 20:10] VITALS: BP 95/63; PULSE 89; RESP 16; TEMP 36.4; O2SAT 100
--- NOTE | 2021-12-25 20:24 | XRR_ITS ---
PROCEDURE INFORMATION: Exam: XR Chest Exam date and time: 12/25/2021 9:14 PM Age: 61 years old Clinical indication: Angina; Additional info: Cp TECHNIQUE: Imaging protocol: Radiologic exam of the chest. Views: 1 view. COMPARISON: CR XR chest 1V portable [id number] 10/18/2020 8:29 PM FINDINGS: Lungs: Unremarkable. No consolidation. Pleural spaces: Unremarkable. No pleural effusion. No pneumothorax. Heart/Mediastinum: Unremarkable. No cardiomegaly. Bones/joints: Unremarkable. XR/XR chest 1V portable [id number] IMPRESSION: No acute findings.
[2021-12-25 20:34] LABS: Basophils % 0.2 %; Eosinophils # 0.2 10^3/uL (0.0-0.8); Eosinophils % 4.6 %; Hematocrit 37.1 % (42.0-52.0); Lymphocytes # 1.6 10^3/uL (0.8-4.8); Lymphocytes % 31.2 %; Mean Corpuscular Hemoglobin 30.5 pg (28.0-34.0); Mean Corpuscular Volume 87.1 fl (80-94); Mean Platelet Volume 10.4 fL (7.4-10.4); Monocytes # 0.5 10^3/uL (0.2-0.9); Monocytes % 10.4 %; Neutrophils # 2.77 10^3/uL (1.8-7.7); Neutrophils % 53.4 %; Nucleated Red Blood Cells % 0 %; Platelet Count 262 10^3/cmm (130-400); Red Blood Count 4.26 10^6/uL (4.1-5.3); Red Cell Distribution Width 12.7 % (12.1-15.1); White Blood Count 5.2 10^3/uL (4.0-10.0)
[2021-12-25 20:52] LABS: Alanine Aminotransferase 23 U/L (0-41); Albumin Level 4.8 g/dL (3.5-5.2); Alkaline Phosphatase 78 IU/L (40-130); Anion Gap 19.3 (5-19); Aspartate Amino Transferase 17 U/L (0-40); Blood Urea Nitrogen 54 mg/dL (8-23); Calcium 9.4 mg/dL (8.5-10.5); Carbon Dioxide 24 mmol/L (22-29); Chloride 94 mmol/L (98-107); Globulin 2.4 g/dL (1.3-4.6); Glomerular Filtration Rate 8.9 mL/min (90-130); Glucose 98 mg/dL (65-115); Osmolality Calculated 291 mOsm/kg (285-295); Potassium 4.3 mmol/L (3.5-5.1); Sodium 133 mmol/L (136-145); Total Bilirubin 0.6 mg/dL (0.15-1.2); Total Protein 7.2 g/dL (6.6-8.7)
[2021-12-25 20:53] LABS: Troponin(5th) Baseline 20 ng/L (0-15)
[2021-12-25 20:59] LABS: Creatine Phosphokinase 581 U/L (39-308)
[2021-12-25 21:09] LABS: CKMB 5.3 ng/mL (0-10.4)
--- NOTE | 2021-12-25 21:21 | ED_ITS ---
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 He states he is also only urinated twice since then and felt extremely weak. Denies any vomiting or diarrhea denies any chest pain denies any fevers. Associated symptoms: Reports syncope; Deny chest pain, dyspnea, headache(s), nausea, rash or vomiting Review of Systems Const: Denies: fever(s), chills, body aches or change in appetite Eyes: Denies: blurry vision or eye discomfort ENMT: Denies: throat pain or dental pain Card: Reports: syncope; Denies: chest pain Resp: Denies: dyspnea GI: Denies: abdominal pain, nausea, vomiting or diarrhea : Denies: dysuria Musc: Denies: neck pain or back pain Skin/Breast: Denies: rash Neuro: Reports: weakness in extremities; Denies: headache(s) Psych: Denies: depression Hipolito/Lymph: Denies: easy bruising All/Imm: Denies: urticaria PFSH ED PFSH: Medical History Delirium Fatigue No pertinent past medical history Surgical History No pertinent past surgical history Family History Brother Chronic pain Drug abuse Mother Hypertension Father Heart disease Sister AIDS Other Family history non-contributory Social History Smoking and tobacco status: never smoked Alcohol intake: current Alcohol intake frequency: few times a month Alcohol type: beer Household members: spouse Housing: House Physical Exam Const: COMMON NORMALS: patient oriented x3 GENERAL APPEARANCE: ill appearing HENMT: COMMON NORMALS: normocephalic and atraumatic HEAD & SCALP: normocephalic and atraumatic Eye: COMMON NORMALS: Equal, round and reactive pupils present and EOMs intact bilaterally PUPIL: Yes Equal, round and reactive pupils present Neck/C-Spine: COMMON NORMALS: full ROM and supple Chest: COMMONS NORMALS: normal inspection of the chest and normal palpation of entire chest wall Resp: COMMON NORMALS: normal respiratory effort, No retractions, No use of accessory muscles and clear to auscultation bilaterally AUSCULTATION: clear to auscultation bilaterally Cardio: COMMON NORMALS: regular rate, regular rhythm and No murmurs present (Cardio) RATE: regular rate RHYTHM: regular rhythm GI: COMMON NORMALS: Normal to inspection, nondistended, normoactive bowel sounds present, Soft to palpation, non-tender and no masses PALPATION: Yes Soft to palpation Extremity: COMMON NORMALS: normal to inspection and full ROM Neuro: COMMON NORMALS: patient oriented x3, moves all extremities and no focal motor deficits Psych: COMMON NORMALS: mental status grossly normal, Normal thought process present and cooperative THOUGHT PROCESS: Normal thought process present Skin: COMMON NORMALS: no rashes or lesions noted and no wounds GENERAL SKIN EXAM: no rashes or lesions noted Course Vital Signs: Vital signs: Vital Signs Temperature 97.5 F L 12/25/21 20:10 Pulse Rate 89 12/25/21 20:10 Respiratory Rate 16 12/25/21 20:10 Blood Pressure 95/63 12/25/21 20:10 Pulse Oximetry 100 12/25/21 20:10 [facility] - General Adult Medical Decision Making Patient presents here with heat exhaustion along with acute kidney injury likely from dehydration patient does have an elevated creatinine I spoke to the [facility] pitalist and will admit here for observation for IV hydration. Patient stable while here. Lab Data : 12/25/21 20:20 12/25/21 20:20 Laboratory Results WBC 5.2 10^3/uL (4.0-10.0) 12/25/21 20:20 RBC 4.26 10^6/uL (4.1-5.3) 12/25/21 20:20 Hgb 13.0 g/dL (11.7-16.6) 12/25/21 20:20 Hct 37.1 % (42.0-52.0) L 12/25/21 20:20 MCV 87.1 fl (80-94) 12/25/21 20:20 MCH 30.5 pg (28.0-34.0) 12/25/21 20:20 MCHC 35.0 g/dL (30.0-36.0) 12/25/21 20:20 RDW 12.7 % (12.1-15.1) 12/25/21 20:20 Plt Count 262 10^3/cmm (130-400) 12/25/21 20:20 MPV 10.4 fL (7.4-10.4) 12/25/21 20:20 Neut % (Auto) 53.4 % 12/25/21 20:20 Lymph % (Auto) 31.2 % 12/25/21 20:20 [place] % (Auto) 10.4 % 12/25/21 20:20 Eos % (Auto) 4.6 % 12/25/21 20:20 Baso % (Auto) 0.2 % 12/25/21 20:20 Neut # (Auto) 2.77 10^3/uL (1.8-7.7) 12/25/21 20:20 Lymph # (Auto) 1.6 10^3/uL (0.8-4.8) 12/25/21 20:20 [place] # (Auto) 0.5 10^3/uL (0.2-0.9) 12/25/21 20:20 Eos # (Auto) 0.2 10^3/uL (0.0-0.8) 12/25/21 20:20 Baso # (Auto) 0.0 10^3/uL (0.0-0.1) 12/25/21 20:20 Nucleated RBC % (auto) 0 % 12/25/21 20:20 Nucleated RBCs # 0.0 /100WBC 12/25/21 20:20 Sodium 133 mmol/L (136-145) L 12/25/21 20:20 Potassium 4.3 mmol/L (3.5-5.1) 12/25/21 20:20 Chloride 94 mmol/L (98-107) L 12/25/21 20:20 Carbon Dioxide 24 mmol/L (22-29) 12/25/21 20:20 Anion Gap 19.3 (5-19) H 12/25/21 20:20 BUN 54 mg/dL (8-23) H 12/25/21 20:20 Creatinine 6.4 mg/dL (0.7-1.2) H* 12/25/21 20:20 GFR Calculation 8.9 mL/min (90-130) L 12/25/21 20:20 Glucose 98 mg/dL (65-115) 12/25/21 20:20 Calculated Osmolality 291 mOsm/kg (285-295) 12/25/21 20:20 Calcium 9.4 mg/dL (8.5-10.5) 12/25/21 20:20 Total Bilirubin 0.6 mg/dL (0.15-1.2) 12/25/21 20:20 AST 17 U/L (0-40) 12/25/21 20:20 ALT 23 U/L (0-41) 12/25/21 20:20 Alkaline Phosphatase 78 IU/L (40-130) 12/25/21 20:20 Creatine Kinase 581 U/L (39-308) H* 12/25/21 20:20 CK-MB (CK-2) 5.3 ng/mL (0-10.4) 12/25/21 20:20 CK-MB (CK-2) Rel Index % (0.0-5.3) 12/25/21 20:20 Troponin T Baseline 20 ng/L (0-15) H 12/25/21 20:20 Total Protein 7.2 g/dL (6.6-8.7) 12/25/21 20:20 Albumin 4.8 g/dL (3.5-5.2) 12/25/21 20:20 Globulin 2.4 g/dL (1.3-4.6) 12/25/21 20:20 EKG Data EKG 1: I personally reviewed and interpreted this EKG as follows: EKG interpretation date: 12/25/21 EKG interpretation time: 20:15 Interpretation: nsr hr [address] or t wave abnormalities qrs 98 [id number] Discharge Plan Discharge Patient Disposition: Placed in Observation Clinical Impression: Acute kidney injury, Heat exhaustion Coding Level of Care Code ED Wagon Driver Salesperson for Chg Fwd Exam Comprehensive
--- NOTE | 2021-12-25 22:24 | ECG_ITS ---
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 Measurements Intervals [place] Rate: 58 P: 45 PA: 135 QRS: 22 QRSD: 105 T: 34 QT: 404 QTc: 399 Interpretive Statements SINUS BRADYCARDIA Compared to ECG 10/19/2020 03:02:07 T-wave abnormality no longer present Electronically Signed On 12-26-2021 8:49:09 CDT by Edmar Garrett M.D. [id number]
[2021-12-25 22:50] VITALS: BP 95/55; PULSE 61; RESP 18; O2SAT 94
[2021-12-25 23:11] LABS: Troponin 5 2HR 14.95 ng/L (0-15)
[2021-12-25 23:12] LABS: Troponin 5 2HR Delta -5.05 ABS# (0-10)
[2021-12-25 23:23] VITALS: BMI 27.4
[2021-12-25 23:49] VITALS: BP 105/60; PULSE 61; RESP 17; TEMP 36.8; O2SAT 97
[2021-12-26] MEDS: dextrose 5%-sod chloride 0.9% 1,000 ML 100 ML IV ×2 (00:45→08:36)
--- NOTE | 2021-12-26 02:24 | ECG_ITS ---
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 Measurements Intervals [place] Rate: 53 P: 51 NC: 176 QRS: 42 QRSD: 77 T: 58 QT: 427 QTc: 403 Interpretive Statements SINUS BRADYCARDIA POSSIBLE LEFT ATRIAL ENLARGEMENT [-0.1mV P-WAVE IN V1/V2] INTERPRETATION BASED ON A DEFAULT AGE OF 40 YEARS Compared to ECG 12/25/2021 22:22:51 No significant changes Electronically Signed On 12-26-2021 8:49:57 CDT by Edmar Garrett M.D. [id number] f
[2021-12-26 02:29] LABS: Alanine Aminotransferase 19 U/L (0-41); Albumin Level 4.2 g/dL (3.5-5.2); Alkaline Phosphatase 71 IU/L (40-130); Anion Gap 19.2 (5-19); Aspartate Amino Transferase 13 U/L (0-40); Blood Urea Nitrogen 55 mg/dL (8-23); Calcium 8.3 mg/dL (8.5-10.5); Carbon Dioxide 21 mmol/L (22-29); Chloride 98 mmol/L (98-107); Globulin 2.4 g/dL (1.3-4.6); Glomerular Filtration Rate 8.7 mL/min (90-130); Glucose 128 mg/dL (65-115); Magnesium 2.6 mg/dL (1.7-2.3); Osmolality Calculated 295 mOsm/kg (285-295); Potassium 4.2 mmol/L (3.5-5.1); Sodium 134 mmol/L (136-145); Total Bilirubin 0.5 mg/dL (0.15-1.2); Total Protein 6.6 g/dL (6.6-8.7)
[2021-12-26 02:31] LABS: Troponin 5 6HR 15.11 ng/L (0-15)
--- NOTE | 2021-12-26 02:41 | USR_ITS ---
PROCEDURE INFORMATION: Exam: US Retroperitoneal; Complete; Kidneys and Bladder Exam date and time: 12/26/2021 3:03 AM Age: 61 years old Clinical indication: Other: Input and output made them worry about hydro; Patient HX: Evaluate for hydronephrosis; Additional info: Evalute for hydronephrosis TECHNIQUE: Imaging protocol: Real-time ultrasound of the retroperitoneum with image documentation. Complete exam focused on the kidneys and bladder. COMPARISON: No relevant prior studies available. FINDINGS: Right kidney: The right kidney measures 10.7 x 6.5 x 5.3 cm. There is slightly increased right renal echogenicity. No stones. No hydronephrosis. Left kidney: The left kidney measures 9.4 x 5.6 x 5.3 cm. There is slightly increased left renal echogenicity. No stones. No hydronephrosis. Urinary bladder: Distended urinary bladder. US/US renal BI* [id number] IMPRESSION: No acute findings. Slightly increased renal echogenicity which may be seen with medical renal disease.
--- NOTE | 2021-12-26 02:43 | PM.HP ---
Providers/Chief Complaint Admitting Physician: Taylor Mcdowell MD Primary Care Provider: Denis Stout DO Chief Complaint: back pain/ leg pain History of Present Illness Juanpablo Bales is a 61 year old male with a PMH HTN prsenting today with 2 days of generalized bodyache, malaise, headache. Upon evaluation here he was found to have elevated cr at 6.4, high anion gap. He has been netta for the past 2 days, up to 14 hrs a day. 2 days ago he had 3 gallons of ice tea to keep hydrated. yesterday he had 3-4 bottles of water. Today he started to experience headache and somehwat light headed therefor came to ER. no h/o LOC, syncope. No fever, chills, NVD , URI symptoms. No recent changes in medication. takes lisinopril and amlodipine as prescribed. Has taken 4 advils yesterday due to generalized bodyache. He has noticed reduced urine output today. No changes in colr that he has noted.denies dysuria, increased straining, prior prostate issues. Denies past renal stones Review of Systems General: Reports: 10 or more systems reviewed and unremarkable except in HPI and below Const: Denies: fever(s), chills or body aches Eyes: Denies: change in vision, blurry vision or photophobia ENMT: Reports: hoarseness; Denies: throat pain, enlarged tonsils, odynophagia or nasal congestion Card: Denies: chest pain, palpitations, irregular heart rhythm, edema, swelling of feet/ankles, lightheadedness, pre-syncope, dyspnea on exertion or orthopnea Resp: Denies: dyspnea, productive cough, non-productive cough, wheezing, stridor, pain on inspiration, change in phlegm color, hemoptysis or chest congestion GI: Denies: abdominal pain, nausea, vomiting, hematemesis, coffee ground emesis, dysphagia, heartburn, diarrhea, constipation, GI cramping, change in stool character, hematochezia or melena : Denies: flank pain, dysuria, urinary frequency, urinary urgency, urinary hesitancy or hematuria Musc: Denies: neck pain, back pain, extremity pain, joint swelling, joint warmth or deformity Neuro: Denies: headache(s), numbness in extremities, weakness in extremities, sensory changes, difficulty walking, frequent falls, dizziness, vertigo, behavioral changes, Slurred speech present or seizure-like activity Psych: Denies: anxiety, depression, suicidal ideation or homicidal ideation Endo: Denies: polyuria, polydipsia, tired all the time, cold intolerance or hot flashes Hipolito/Lymph: Denies: easy bruising or easy bleeding Medications/Allergies Home Medications Medication Instructions Recorded Confirmed Last Taken Type Allergy 1 tab PO DAILY@0700 10/18/20 02/24/21 10/18/20 History ibuprofen 200 mg tablet (Advil) 200 - 400 mg PO Q6H PRN 10/18/20 02/24/21 10/18/20 History amlodipine 10 mg tablet 10 mg PO DAILY #30 tab 10/20/20 02/24/21 Unknown Rx lisinopril 20 mg tablet 40 mg PO DAILY #60 tab 10/20/20 02/24/21 Unknown Rx Allergies Allergy/AdvReac Type Severity Reaction Status Date / Time No Known Allergies Allergy Verified 02/24/21 14:29 PFSH Acute PFSH: Medical History Delirium Fatigue No pertinent past medical history Surgical History No pertinent past surgical history Family History Brother Chronic pain Drug abuse Mother Hypertension Father Heart disease Sister AIDS Other Family history non-contributory Social History Smoking and tobacco status: never smoked Alcohol intake: current Alcohol intake frequency: few times a month Alcohol type: beer Household members: spouse Housing: House Vitals/I&O/Wt Last Vital Signs Temp 98.2 F 12/25/21 23:49 Pulse 61 12/25/21 23:49 Resp 17 12/25/21 23:49 BP 105/60 12/25/21 23:49 Pulse Ox 97 12/25/21 23:49 Weight last 48 hrs Weight 72.575 kg Weight 72.575 kg Physical Exam Narrative: General: No acute distress, AO x3 HEENT: PERRLA, pupils bilaterally equal and reactive, pallors not present Chest: Normal vesicular breath sounds, no added sounds, equal good air entry bilaterally CVS: S1-S2 regular, no murmurs, no tachycardia, no gallops, no rubs Abdomen: Soft, nontender, no organomegaly, bowel sounds present Neuro: No focal deficits, no facial deformity, AO x3, power 5/5 in all limbs Extremities: no clubbing edema or cyanosis Data : 12/25/21 20:20 12/26/21 02:00 A&P Assessment and plan (1) Acute kidney injury: Alan with creatinine up to 6.4, with previously normal baseline Given acuity of symptoms and prolonged activity outdoors in the heat, suspect Alan related to dehydation/ heat exhaustion. IVF d5NS @ 100cc/hr, received 1L NS in the ER prior Renal USG to rule out obstructive uropathy Strict I/O check UA, urine lytes and urine creatinine no current hyperkalemia Trend CPK Status: Acute (2) Heat exhaustion: Status: Acute (3) Rhabdomyolysis: Status: Acute Attestations Medical Necessity Statement*: anticipate >2midnight admission for management of ALAN, Iv hydration , close monitoring of renal function and urine output Coding Level of Care Code Acute Claims Processor for [facility] Fwd Diagnoses Acute kidney injury N17.9 Heat exhaustion T67.5XXA Rhabdomyolysis M62.82
[2021-12-26 04:00] VITALS: BP 82/42; PULSE 53; RESP 17; TEMP 36.6; O2SAT 98
[2021-12-26 07:01] VITALS: BP 89/49; PULSE 52; RESP 16; TEMP 36.6; O2SAT 96
--- NOTE | 2021-12-26 07:04 | PC.NURSE ---
nurse was notified of low blood pressure
[2021-12-26 08:27] LABS: Add Urine Microscopic? YES; Bilirubin Urine Neg (Negative); Blood Urine Neg (Negative); Glucose Urine UA Norm (Normal); Ketones Urine Negative (Negative); Leukocyte Esterase Urine 1+ (Negative); Nitrate Urine Negative (Negative); Protein Urine Neg (Negative); Urine Appearance Clear (CLEAR); Urine Color Yellow (Yellow); Urobilinogen Urine Norm (Negative); pH Urine 5 (5-7)
[2021-12-26 08:28] LABS: Add Urine Culture? Yes; Bacteria Urine 1+ /hpf; RBC Urine 0-4 /hpf (0-2); Squamous Epithelial Cell Urine 0-4 /hpf (0-5)
[2021-12-26 08:36] LABS: Potassium, Radom Urine 18 mmol/L; Urine Creatinine 190 mg/dL (39-259); Urine Random Sodium 34 mmol/L
[2021-12-26] MEDS: pantoprazole DR 40 mg Tablet PO (08:36)
[2021-12-26 08:49] LABS: Urine Random Chloride 10 mmol/L
[2021-12-26] MEDS: lactated ringers 500 ML 999 ML IV (09:11)
[2021-12-26] MEDS: lactated ringers 1,000 ML 100 ML IV ×2 (09:12→18:20)
--- NOTE | 2021-12-26 10:35 | PC.CHAP ---
Pastoral Care Encounter/Spiritual Assessment Type of Contact [] Declined banking analyst visit [] Patient/Family/Request visit [] Outpatient visit [] Follow-up visit [] Physician referral [] Code/Alert [x] Routine visit [] Staff referral [] Actively dying [] Patient sleeping [] Family support [] [] Out of room [] Palliative care [] [] Receiving care in room [] Pre-surgical visit [] Trauma [] Long length of stay [] ICU visit [] Other: Relational/Emotional Strength [x] Patient feels connected with others/family/visitors/staff [] Distress [] Loneliness/isolation [] Abandonment Spirituality of Patient [x] Person of Arlet [] Attends Jain of their Arlet [x] Believes in Prayer [] Reads Bible or Buddhist materials [] There are Spiritual issues to be addressed Shank Tapper Interventions [x] Prayer [x] Active listening [x] Non-anxious presence [] Spiritual/emotional support [] Crisis/trauma care [] Spiritual counseling [] Bereavement support [] Provided bereavement packet [] Provided Bible/devotional materials [] Provided toy/stuffed animal, coloring book to patient or family member [] Provided Communion [] Anointing/[place] [] Salvation [x] Completed spiritual assessment [] Other: Impact on Illness or Injury [] Angry [] Fearful [] Anxious [] Often cries [] Exhaustion [] Unable to work [] Unable to attend sikh [] Unable to walk/stand [] Unable to read [] Unable to drive [] Unable to eat/drink [] Unable to sleep [] Unable to be with family [] Patient intubated [] Other: Summary Time spent with patient 10 min
[2021-12-26 11:40] VITALS: BP 102/61; PULSE 57; RESP 17; TEMP 36.7; O2SAT 95
[2021-12-26 12:04] LABS: Thyroid Stimulating Hormone 0.81 uIU/mL (0.27-4.20)
--- NOTE | 2021-12-26 12:05 | PM.MISC ---
Miscellaneous Note Note: Patient is stating that he is feeling better today, I told him that we would like to keep him here until Sunday we have noticed bradycardia Will do pulse oximetry study overnight Did talk with his as well Patient is awake and alert Nonfocal neuro exam Abdomen soft Satting well on room air Looks slightly dehydrated No muscle injury Patient is in pleasant mood Doing well on room air Dehydration related to heat exhaustion ALAN related dehydration Continue IV fluids updated Bradycardia, do pulse oximetry study Rule out sleep apnea, check TSH EKG showing sinus bradycardia
--- NOTE | 2021-12-26 12:13 | ECG_ITS ---
[facility] Test Date: 2021-12-26 Pat Name: Juanpablo Bales Department: Room: 251 Gender: Male Database Security Administrator: : 1960 Requested By: Stanley Gill Order Number: [id number] Jose Eduardo MD: Edmar Garrett M.D. Measurements Intervals [place] Rate: 62 P: 57 OR: 140 QRS: 23 QRSD: 100 T: 39 QT: 387 QTc: 394 Interpretive Statements SINUS RHYTHM Compared to ECG 12/26/2021 02:18:17 Sinus bradycardia no longer present Electronically Signed On 12-27-2021 16:54:14 CDT by Edmar Garrett M.D. [id number]
[2021-12-26] MEDS: acetaminophen 325 mg Tablet 650 MG PO (13:39)
[2021-12-26 15:28] VITALS: BP 99/63; PULSE 51; RESP 16; TEMP 36.7; O2SAT 96
--- NOTE | 2021-12-26 17:40 | PC.NURSE ---
Patient resting in bed, OOBT bathroom and chair a few times throughout shift. AAOx4, BP soft and some bradycardia episodes with remaining VSS. No new events or needs. Minimal c/o headache relieved by oral pain medication. Room clean and clutter free, call light reach. Will report bedside to oncoming nurse at shift change.
[2021-12-26 18:21] LABS: Anion Gap 14.7 (5-19); Blood Urea Nitrogen 49 mg/dL (8-23); Calcium 8.9 mg/dL (8.5-10.5); Carbon Dioxide 22 mmol/L (22-29); Chloride 106 mmol/L (98-107); Glomerular Filtration Rate 13.7 mL/min (90-130); Glucose 153 mg/dL (65-115); Osmolality Calculated 302 mOsm/kg (285-295); Potassium 4.7 mmol/L (3.5-5.1); Sodium 138 mmol/L (136-145)
[2021-12-26 19:19] VITALS: BP 114/67; PULSE 71; RESP 18; TEMP 36.6; O2SAT 96
[2021-12-27] VITALS: BP 102/62; PULSE 68; RESP 18; O2SAT 94
[2021-12-27] MEDS: lactated ringers 1,000 ML 100 ML IV ×3 (02:41→22:52)
[2021-12-27 04:00] VITALS: BP 112/66; PULSE 59; RESP 18; TEMP 36.7; O2SAT 94
--- NOTE | 2021-12-27 05:09 | PC.NURSE ---
i reported low pulse 59 to nurse
[2021-12-27 05:15] LABS: Basophils % 0.2 %; Eosinophils # 0.2 10^3/uL (0.0-0.8); Eosinophils % 4.9 %; Hematocrit 32.5 % (42.0-52.0); Hemoglobin 11.1 g/dL (11.7-16.6); Lymphocytes # 1.4 10^3/uL (0.8-4.8); Mean Corpuscular HGB Conc 34.2 g/dL (30.0-36.0); Mean Corpuscular Hemoglobin 30.5 pg (28.0-34.0); Mean Corpuscular Volume 89.3 fl (80-94); Monocytes # 0.4 10^3/uL (0.2-0.9); Monocytes % 10.1 %; Neutrophils % 51.6 %; Nucleated Red Blood Cells % 0 %; Platelet Count 198 10^3/cmm (130-400); Red Blood Count 3.64 10^6/uL (4.1-5.3); Red Cell Distribution Width 12.6 % (12.1-15.1); White Blood Count 4.3 10^3/uL (4.0-10.0)
[2021-12-27 05:37] LABS: Alanine Aminotransferase 15 U/L (0-41); Albumin Level 3.8 g/dL (3.5-5.2); Alkaline Phosphatase 61 IU/L (40-130); Anion Gap 13.1 (5-19); Aspartate Amino Transferase 10 U/L (0-40); Blood Urea Nitrogen 41 mg/dL (8-23); Calcium 8.7 mg/dL (8.5-10.5); Carbon Dioxide 24 mmol/L (22-29); Chloride 110 mmol/L (98-107); Creatine Phosphokinase 211 U/L (39-308); Globulin 2.2 g/dL (1.3-4.6); Glomerular Filtration Rate 16.7 mL/min (90-130); Glucose 96 mg/dL (65-115); Osmolality Calculated 304 mOsm/kg (285-295); Potassium 5.1 mmol/L (3.5-5.1); Sodium 142 mmol/L (136-145); Total Bilirubin 0.2 mg/dL (0.15-1.2)
--- NOTE | 2021-12-27 07:10 | PC.NURSE ---
Report received from Polly HERNÁNDEZ.
[2021-12-27 07:20] VITALS: BP 109/69; PULSE 69; RESP 18; TEMP 36.6; O2SAT 96
[2021-12-27] MEDS: pantoprazole DR 40 mg Tablet PO (09:25)
--- NOTE | 2021-12-27 10:32 | P.PN_ITS ---
Subjective Subjective: This morning patient is endorsing feeling better Adequate urine output, had 1 bowel movement Tolerating his diet Blood pressure is stable Did not qualify for oxygen Pulse oximetry study unremarkable Did well on room air Creatinine today 3.7 Vitals/I&O/Wt Last Vital Signs Temp 97.9 F 12/27/21 07:20 Pulse 69 12/27/21 07:20 Resp 18 12/27/21 07:20 BP 109/69 12/27/21 07:20 Pulse Ox 96 12/27/21 07:20 12/26/21 12/27/21 12/27/21 22:59 06:59 14:59 Intake Total 1913.333 / 4713.333 1035 / 5748.333 320 / 320 Output Total 1075 / 2685 600 / 3285 500 / 500 Balance 838.333 / 2028.333 435 / 2463.333 -180 / -180 Weight last 48 hrs Weight 72.575 kg Weight 72.575 kg Physical Exam Narrative: Signs of dehydration improving Awake and alert Note focal deficit S1, S2 Saturating well on room air Abdomen soft Well-hydrated Pleasant and cooperative Data : 12/27/21 05:07 12/27/21 05:07 A&P Assessment and plan (1) Acute kidney injury: Status: Acute (2) Heat exhaustion: Status: Acute (3) Hypertension: Status: Acute Plan Heat exhaustion related dehydration ALAN: Improving with IV fluid hydration No signs of obstruction Making good amount of urine Sinus bradycardia patient did not qualify for sleep apnea, sinus bradycardia noted on the EKG, he is asymptomatic Consider event monitor at the time of discharge Hypertension: Currently normotensive in fact he required IV boluses to improve his blood pressure Patient is fairly active for his age I am anticipating he will be able to go home tomorrow Avoid ibuprofen Follow-up with PCP Full code Cardiac diet Patient was not diagnosed with rhabdo, CPK was slightly high which is improved with IV fluid hydration Continue LR at 100 mL/h Attestations Medical Necessity Statement*: Discharge tomorrow Time Spent in Patient Care: 30 Coding Level of Care Code Acute Radiology Practitioner Assistant for g Fwd Diagnoses Acute kidney injury N17.9 Heat exhaustion T67.5XXA Hypertension I10
[2021-12-27] MEDS: cetirizine 10 mg Tablet PO (10:56)
[2021-12-27] MEDS: acetaminophen 325 mg Tablet 650 MG PO (10:56)
[2021-12-27 11:12] VITALS: BP 124/73; PULSE 63; RESP 18; TEMP 36.6; O2SAT 96
--- NOTE | 2021-12-27 12:48 | PC.CHAP ---
Pastoral Care Encounter/Spiritual Assessment Type of Contact [] Declined ductfixing plumber visit [] Patient/Family/Request visit [] Outpatient visit [] Follow-up visit [] Physician referral [] Code/Alert [x] Routine visit [] Staff referral [] Actively dying [] Patient sleeping [] Family support [] [] Out of room [] Palliative care [] [] Receiving care in room [] Pre-surgical visit [] Trauma [] Long length of stay [] ICU visit [] Other: Relational/Emotional Strength x[x] Patient feels connected with others/family/visitors/staff [] Distress [] Loneliness/isolation [] Abandonment Spirituality of Patient [x] Person of Arlet [] Attends Pentecostalism of their Arlet []x Believes in Prayer [] Reads Bible or Christian materials [] There are Spiritual issues to be addressed Instrumentation And Controls Technician Interventions x[x] Prayer [x] Active listening [x] Non-anxious presence [] Spiritual/emotional support [] Crisis/trauma care [] Spiritual counseling [] Bereavement support [] Provided bereavement packet [] Provided Bible/devotional materials [] Provided toy/stuffed animal, coloring book to patient or family member [] Provided Communion [] Anointing/[place] [] Salvation [x] Completed spiritual assessment [] Other: Impact on Illness or Injury [] Angry [] Fearful [] Anxious [] Often cries [] Exhaustion [] Unable to work [] Unable to attend druze [] Unable to walk/stand [] Unable to read [] Unable to drive [] Unable to eat/drink [] Unable to sleep [] Unable to be with family [] Patient intubated [] Other: Summary Time spent with patient 10 min
[2021-12-27 15:57] VITALS: BP 118/68; PULSE 64; RESP 18; TEMP 36.7; O2SAT 96
--- NOTE | 2021-12-27 19:09 | PC.NURSE ---
Report to Suzette HERNÁNDEZ at this time.
[2021-12-27 20:00] VITALS: BP 114/63; PULSE 62; RESP 17; TEMP 36.9; O2SAT 95
--- NOTE | 2021-12-27 23:27 | PC.NURSE ---
Addendum entered by Suzette Stinson RN 12/27/21 23:28: This Nurse reminds patient that it is important that we measure & document his urine output & to please use the urinal. Patient states he will use the urinal tonight. Original Note: Patient states he has urinated in the toilet 4 times today during day shift.
[2021-12-28] VITALS (9 sets, daily range): BP systolic 115–138; BP diastolic 65–78; PULSE 52–68; RESP 8–18; TEMP 36.4–37.1; O2SAT 93–97
--- NOTE | 2021-12-28 07:10 | PC.NURSE ---
Report received from Suzette HERNÁNDEZ at this time.
[2021-12-28] MEDS: cetirizine 10 mg Tablet PO (08:23)
[2021-12-28] MEDS: pantoprazole DR 40 mg Tablet PO (08:23)
[2021-12-28 09:05] LABS: Anion Gap 14.2 (5-19); Blood Urea Nitrogen 31 mg/dL (8-23); Calcium 9.2 mg/dL (8.5-10.5); Carbon Dioxide 25 mmol/L (22-29); Chloride 107 mmol/L (98-107); Glomerular Filtration Rate 30.5 mL/min (90-130); Glucose 105 mg/dL (65-115); Osmolality Calculated 299 mOsm/kg (285-295); Potassium 5.2 mmol/L (3.5-5.1); Sodium 141 mmol/L (136-145)
[2021-12-28] MEDS: sodium polystyrene sulfonate 15 gm/60 mL Btl PO (10:00)
[2021-12-28] MEDS: lactated ringers 1,000 ML 100 ML IV (10:01)
--- NOTE | 2021-12-28 19:05 | PC.NURSE ---
Report given to Severo HERNÁNDEZ at this time.
--- NOTE | 2021-12-28 19:13 | P.PN_ITS ---
Subjective Subjective: Seen this morning. Creatinine 2.2, potassium 5.2. Overall doing better. Vitals/I&O/Wt Last Vital Signs Temp 97.8 F 12/28/21 15:56 Pulse 60 12/28/21 15:56 Resp 18 12/28/21 15:56 BP 137/72 12/28/21 15:56 Pulse Ox 96 12/28/21 15:56 12/28/21 12/28/21 12/28/21 06:59 14:59 22:59 Intake Total 1000 / 4560 1240 / 1240 Output Total 1325 / 3500 1000 / 1000 Balance -325 / 1060 1240 / 1240 -1000 / 240 Physical Exam Narrative: General: Alert oriented x3, patient seen sitting up in bed appearing comfortable at this time. HEENT: Normocephalic, atraumatic, EOMI, breathing normally Cardio: Regular rate rhythm, normal S1-S2, no murmurs Respiratory: Good bilateral air entry, no wheezes no rhonchi appreciated GI: Abdomen soft, nontender, nondistended, bowel sounds + Behavior: Appropriate and cooperative Extremities:No LE edema, no cyanosis Data : 12/27/21 05:07 12/28/21 08:09 A&P Assessment and plan (1) Rhabdomyolysis: Status: Acute (2) Acute kidney injury: Status: Acute (3) Heat exhaustion: Status: Acute (4) Hypertension: Status: Acute (5) Bradycardia: Status: Acute Plan Heat exhaustion related dehydration ALAN: Improving with IV fluid hydration No signs of obstruction Making good amount of urine Sinus bradycardia patient did not qualify for sleep apnea, sinus bradycardia noted on the EKG, he is asymptomatic Consider event monitor at the time of discharge Hypertension: Currently normotensive in fact he required IV boluses to improve his blood pressure Patient is fairly active for his age I am anticipating he will be able to go home tomorrow Avoid ibuprofen Follow-up with PCP Full code Cardiac diet Patient was not diagnosed with rhabdo, CPK was slightly high which is improved with IV fluid hydration Stop IV fluids today. Kayexalate one-time dose given for elevated potassium 5.2. Continue to monitor in hospital tonight. We will plan to discharge tomorrow as long as creatinine continues to trend down to follow-up with PCP outpatient. Attestations Medical Necessity Statement*: Potentially discharge home tomorrow. We will need to keep in the hospital tonight to monitor for hyperkalemia. Creatinine still elevated and not back to normal yet. As long this continues to trend down by tomorrow I will plan to send patient home with close follow-up with PCP. Coding Level of Care Code Acute Security Public Safety Officer for g Fwd Diagnoses Rhabdomyolysis M62.82 Acute kidney injury N17.9 Heat exhaustion T67.5XXA Hypertension I10 Bradycardia R00.1
[2021-12-28 20:58] LABS: Anion Gap 15.8 (5-19); Blood Urea Nitrogen 24 mg/dL (8-23); Calcium 9.1 mg/dL (8.5-10.5); Carbon Dioxide 25 mmol/L (22-29); Chloride 107 mmol/L (98-107); Glucose 137 mg/dL (65-115); Osmolality Calculated 302 mOsm/kg (285-295); Potassium 4.8 mmol/L (3.5-5.1); Sodium 143 mmol/L (136-145)
[2021-12-29] VITALS: BP 129/73; PULSE 59; RESP 18; TEMP 36.9; O2SAT 96
[2021-12-29 03:48] LABS: Blood Urea Nitrogen 24 mg/dL (8-23); Calcium 8.8 mg/dL (8.5-10.5); Carbon Dioxide 24 mmol/L (22-29); Chloride 109 mmol/L (98-107); Glomerular Filtration Rate 38.4 mL/min (90-130); Glucose 101 mg/dL (65-115); Magnesium 1.7 mg/dL (1.7-2.3); Osmolality Calculated 300 mOsm/kg (285-295); Sodium 143 mmol/L (136-145)
[2021-12-29 03:49] LABS: Anion Gap 14.7 (5-19); Potassium 4.7 mmol/L (3.5-5.1)
[2021-12-29 03:52] VITALS: BP 130/75; PULSE 61; RESP 18; TEMP 37; O2SAT 95
[2021-12-29 07:41] VITALS: BP 132/69; PULSE 54; RESP 16; TEMP 36.8; O2SAT 96
--- NOTE | 2021-12-29 07:50 | PM.DCS ---
Discharge Providers Date of Admission: 12/25/21 23:27 Date of Discharge: December 29, 2021 Attending Provider at Admission: Taylor Mcdowell MD Attending Provider at Discharge: Ama Parker MD Primary Care Provider: Denis Stout DO Diagnoses at Discharge Discharge Diagnosis (1) Rhabdomyolysis: Status: Resolved (2) Acute kidney injury: Status: Resolved (3) Heat exhaustion: Status: Resolved (4) Hypertension: Status: Resolved (5) Bradycardia: Status: Acute Reason for Visit Reason for Visit: back pain/ leg pain Brief History: As per HPI Juanpablo Bales is a 61 year old male with a PMH HTN prsenting today with 2 days of generalized bodyache, malaise, headache. Upon evaluation here he was found to have elevated cr at 6.4, high anion gap. He has been netta for the past 2 days, up to 14 hrs a day. 2 days ago he had 3 gallons of ice tea to keep hydrated. yesterday he had 3-4 bottles of water. Today he started to experience headache and somehwat light headed therefor came to ER. no h/o LOC, syncope. No fever, chills, NVD , URI symptoms. No recent changes in medication. takes lisinopril and amlodipine as prescribed. Has taken 4 advils yesterday due to generalized bodyache. He has noticed reduced urine output today. No changes in colr that he has noted.denies dysuria, increased straining, prior prostate issues. Denies past renal stones Hospital Course Hospital Course Patient was admitted for generalized body aches malaise and headache. He was found to be severely dehydrated. He had an ALAN with creatinine up to 6.4. He was given IV hydration during hospital stay. No signs of urinary obstructions. He was making good amount of urine and doing well. Patient also had sinus bradycardia during hospital stay. Delta troponin negative. Highest trop was 15. Patient was asymptomatic. Overnight pulse ox did not show low oxygen. Event monitor was set up for him at discharge. He will follow-up with cardiology after that completes. Patient was given a prescription for BMP to do in 1 week and to follow-up with primary care physician. Patient has had a sleep study done in the past he did not qualify for obstructive sleep apnea. I will also give patient an outpatient stress test to do. He will follow up with cardiology outpatient. Scheduling will call him with stress test appointment. Physical Exam Narrative: General: Alert oriented x3, patient seen sitting up in bed appearing comfortable at this time. HEENT: Normocephalic, atraumatic, EOMI, breathing normally Cardio: Regular rate rhythm, normal S1-S2, no murmurs Respiratory: Good bilateral air entry, no wheezes no rhonchi appreciated GI: Abdomen soft, nontender, nondistended, bowel sounds + Behavior: Appropriate and cooperative Extremities:No LE edema, no cyanosis Discharge Data Studies Completed and Pending Completed Studies During Hospitalization Category Date Time Status XR chest 1V portable 19302 Stat Exams 12/25/21 20:24 Completed US renal BI* [id number] Routine Ultrasound 12/26/21 02:41 Completed Radiology Impressions Chest X-Ray 12/25/21 20:24 IMPRESSION: No acute findings. Renal Ultrasound 12/26/21 02:41 IMPRESSION: No acute findings. Slightly increased renal echogenicity which may be seen with medical renal disease. Laboratory Results WBC 4.3 10^3/uL (4.0-10.0) 12/27/21 05:07 RBC 3.64 10^6/uL (4.1-5.3) L 12/27/21 05:07 Hgb 11.1 g/dL (11.7-16.6) L 12/27/21 05:07 Hct 32.5 % (42.0-52.0) L 12/27/21 05:07 MCV 89.3 fl (80-94) 12/27/21 05:07 MCH 30.5 pg (28.0-34.0) 12/27/21 05:07 MCHC 34.2 g/dL (30.0-36.0) 12/27/21 05:07 RDW 12.6 % (12.1-15.1) 12/27/21 05:07 Plt Count 198 10^3/cmm (130-400) 12/27/21 05:07 MPV 10.0 fL (7.4-10.4) 12/27/21 05:07 Neut % (Auto) 51.6 % 12/27/21 05:07 Lymph % (Auto) 33.0 % 12/27/21 05:07 [place] % (Auto) 10.1 % 12/27/21 05:07 Eos % (Auto) 4.9 % 12/27/21 05:07 Baso % (Auto) 0.2 % 12/27/21 05:07 Neut # (Auto) 2.20 10^3/uL (1.8-7.7) 12/27/21 05:07 Lymph # (Auto) 1.4 10^3/uL (0.8-4.8) 12/27/21 05:07 [place] # (Auto) 0.4 10^3/uL (0.2-0.9) 12/27/21 05:07 Eos # (Auto) 0.2 10^3/uL (0.0-0.8) 12/27/21 05:07 Baso # (Auto) 0.0 10^3/uL (0.0-0.1) 12/27/21 05:07 Nucleated RBC % (auto) 0 % 12/27/21 05:07 Nucleated RBCs # 0.0 /100WBC 12/27/21 05:07 Sodium 143 mmol/L (136-145) 12/29/21 02:54 Potassium 4.7 mmol/L (3.5-5.1) 12/29/21 02:54 Chloride 109 mmol/L (98-107) H 12/29/21 02:54 Carbon Dioxide 24 mmol/L (22-29) 12/29/21 02:54 Anion Gap 14.7 (5-19) 12/29/21 02:54 BUN 24 mg/dL (8-23) H 12/29/21 02:54 Creatinine 1.8 mg/dL (0.7-1.2) H 12/29/21 02:54 GFR Calculation 38.4 mL/min (90-130) L 12/29/21 02:54 Glucose 101 mg/dL (65-115) 12/29/21 02:54 Calculated Osmolality 300 mOsm/kg (285-295) H 12/29/21 02:54 Calcium 8.8 mg/dL (8.5-10.5) 12/29/21 02:54 Magnesium 1.7 mg/dL (1.7-2.3) 12/29/21 02:54 Total Bilirubin 0.2 mg/dL (0.15-1.2) 12/27/21 05:07 AST 10 U/L (0-40) 12/27/21 05:07 ALT 15 U/L (0-41) 12/27/21 05:07 Alkaline Phosphatase 61 IU/L (40-130) 12/27/21 05:07 Creatine Kinase 211 U/L (39-308) 12/27/21 05:07 CK-MB (CK-2) 5.3 ng/mL (0-10.4) 12/25/21 20:20 CK-MB (CK-2) Rel Index % (0.0-5.3) 12/25/21 20:20 Troponin T Baseline 20 ng/L (0-15) H 12/25/21 20:20 Troponin T 120 Minute 14.95 ng/L (0-15) 12/25/21 22:40 Delta Troponin T -5.05 ABS# (0-10) L 12/25/21 22:40 Troponin T Hi Sens 6Hr 15.11 ng/L (0-15) H 12/26/21 02:00 Troponin T Hi Sens 6Hr Delta -4.89 ng/L (0-12) L 12/26/21 02:00 Total Protein 6.0 g/dL (6.6-8.7) L 12/27/21 05:07 Albumin 3.8 g/dL (3.5-5.2) 12/27/21 05:07 Globulin 2.2 g/dL (1.3-4.6) 12/27/21 05:07 TSH 0.81 uIU/mL (0.27-4.20) 12/26/21 00:22 Urine Color Yellow (Yellow) 12/26/21 07:39 Urine Appearance Clear (CLEAR) 12/26/21 07:39 Urine pH 5 (5-7) 12/26/21 07:39 Ur Specific [place] 1.020 (1.005-1.030) 12/26/21 07:39 Urine Protein Neg (Negative) 12/26/21 07:39 Urine Glucose (UA) Norm (Normal) 12/26/21 07:39 Urine Ketones Negative (Negative) 12/26/21 07:39 Urine Blood Neg (Negative) 12/26/21 07:39 Urine Nitrate Negative (Negative) 12/26/21 07:39 Urine Bilirubin Neg (Negative) 12/26/21 07:39 Urine Urobilinogen Norm mg/dL (Negative) 12/26/21 07:39 Ur Leukocyte Esterase 1+ (Negative) H 12/26/21 07:39 Urine RBC 0-4 /hpf (0-2) H 12/26/21 07:39 Urine WBC 10-15 /hpf (0-5) H 12/26/21 07:39 Ur Squamous Epith Cells 0-4 /hpf (0-5) H 12/26/21 07:39 Amorphous Sediment Not Reportable 12/26/21 07:39 Urine Bacteria 1+ /hpf (NONE) H 12/26/21 07:39 Hyaline Casts 5-10 /lpf H 12/26/21 07:39 Ur Random Sodium 34 mmol/L 12/26/21 07:39 Ur Random Potassium 18 mmol/L 12/26/21 07:39 Ur Random Chloride 10 mmol/L 12/26/21 07:39 Urine Creatinine 190 mg/dL (39-259) 12/26/21 07:39 Vitals Last Vital Signs Temp 98.2 F 12/29/21 07:41 Pulse 54 L 12/29/21 07:41 Resp 16 12/29/21 07:41 BP 132/69 12/29/21 07:41 Pulse Ox 96 12/29/21 07:41 Discharge Plan Discharge Patient Disposition: Home Condition: Stable Prescriptions: Continued cetirizine [Zyrtec] 10 mg Tablet 10 mg PO DAILY Qty: 0 0RF Discontinued ibuprofen [Advil] 200 mg Tablet 200 - 400 mg PO Q6H PRN (Reason: ATHRITIS) 0RF Discharge Orders: Discharge Order (Routine); Ordered 12/29/21 Ordered By: Ama Parker Other Ambulatory Orders: Basic Metabolic Panel (Routine) Timeframe: 1 Week Facility: [facility] - Location: Lab - Main Lab Ordered By: Ama Parker Cardiac Stress Test Request (Routine) Timeframe: 3 Days Facility: [facility] - Location: Cardiac Diagnostic Laboratory Ordered By: Ama Parker Referrals: Chris Carlos M.D [Physician] - 02/23/22 1:00 pm Denis Stout DO [Primary Care Provider] - 01/02/22 10:45 am (APPOINTMENT WITH [facility] ) Discharge Diet: Regular Discharge Activity: Increase activity as tolerated Patient Instructions: Opioid Safety Activity Restrictions/Additional Instructions: APPOINTMENT FOR [facility] DECEMBER 29 AT 12:45 Please make sure you get your event monitor before you leave today. Discharge Attestations Time Spent in Discharge Care*: less than 30 min Status at Discharge: Cognitive status at discharge: cognitively intact, Behavioral status at discharge: cooperative, Quality Metrics Clinical Quality Measures [ No reported AMI, CVA or VTE this stay] Coding Level of Care Code Acute Chg FW DC note Diagnoses Rhabdomyolysis M62.82 Acute kidney injury N17.9 Heat exhaustion T67.5XXA Hypertension I10 Bradycardia R00.1
[2021-12-29] MEDS: pantoprazole DR 40 mg Tablet PO (08:23)
[2021-12-29] MEDS: cetirizine 10 mg Tablet PO (08:23)
[2021-12-29 11:51] VITALS: BP 111/71; PULSE 104; RESP 16; TEMP 36.8; O2SAT 90
[2021-12-29 11:59] VITALS: BP 111/71; PULSE 104; RESP 16; TEMP 36.8; O2SAT 90
== END 2021-12-29 12:02 | disposition home or self-care (01) | DRG 923 ==
LOC: ER 21:35 → MEDSURG 12-26 00:19
PROVIDERS: Internal Medicine; Physician Assistant; Admitting Provider Student in an Organized Health Care Education/Training Program; Emergency Provider Emergency Medicine; PCP Internal Medicine; Visit Provider Internal Medicine
DX: T67.5XXA Heat exhaustion, unspecified, initial encounter (principal); N17.9 Acute kidney failure, unspecified; X58.XXXA Exposure to other specified factors, initial encounter; E86.0 Dehydration; R00.1 Bradycardia, unspecified; E87.5 Hyperkalemia
CPT/HCPCS: 36415; 71045; 76770; 80048; 80053; 81001; 82436; 82550; 82553; 82570; 83735; 84133; 84300; 84443; 84484; 85025; 93005; 99285; G0378

== ENCOUNTER 2022-01-05 11:49 | Outpatient (CLI) | payer OTHER, SELFPAY ==
[2022-01-05 13:05] LABS: Anion Gap 14.4 (5-19); Blood Urea Nitrogen 21 mg/dL (8-23); Calcium 9.5 mg/dL (8.5-10.5); Carbon Dioxide 27 mmol/L (22-29); Chloride 102 mmol/L (98-107); Glomerular Filtration Rate 47.4 mL/min (90-130); Glucose 108 mg/dL (65-115); Osmolality Calculated 292 mOsm/kg (285-295); Potassium 4.4 mmol/L (3.5-5.1); Sodium 139 mmol/L (136-145)
== END 2022-01-05 11:50 | disposition home or self-care (01) ==
PROVIDERS: PCP Nurse Practitioner Family; Visit Provider Internal Medicine
DX: N17.9 Acute kidney failure, unspecified (principal)
CPT/HCPCS: 36415; 80048

== ENCOUNTER 2022-01-23 07:53 | Outpatient (CLI) | payer OTHER, SELFPAY ==
--- NOTE | 2022-01-23 | ECG_ITS ---
[facility] Test Date: 2022-01-23 Pat Name: Juanpablo Bales Department: Room: Gender: Male Template Checker: : 1960 Requested By: Ama Parker Order Number: [id number] Whitt MD: Chris Carlos M.D. Interpretive Statements NAME OF STUDY: TREADMILL STRESS TEST INDICATION: [Shortness of Breath] EXERCISE DATA: The patient was exercised by Sukhjinder protocol. Baseline heart rate was 69 beats per minute. Baseline blood pressure was 145/106 millimeters of mercury. Target heart rate was 134 beats per minute. Maximum heart rate achieved was 165, which was 123% of the target heart rate. Maximum blood pressure was 218/65 millimeters of mercury. Total exercise time was 5 minute 59 seconds. Maximum METs achieved was 7. The reason for ending the test was completion of the protocol. The patient complained of shortness of breath during the stress test, which then resolved at the end of the test. ELECTROCARDIOGRAM: BASELINE: Showed sinus rhythm, normal axis, no significant ST-T changes at the baseline noted. [] EXERCISE: At the peak exercise level, [] No significant ST-T changes suggestive of ischemia noted. [] RECOVERY: During the recovery period, heart rate dropped appropriately. No significant ST-T changes in the recovery suggestive of ischemia noted. [] CONCLUSION: 1. Exercise capacity fair. 2. Heart rate response was appropriate. 3. Blood pressure response was appropriate. 4. Symptoms not suggestive of ischemia. 5. Stress test is negative for ischemia Electronically Signed On 02-13-2022 0:34:55 CDT by Chris Carlos M.D. [id number]
[2022-01-23 08:56] VITALS: BP 176/84; PULSE 84
== END 2022-01-23 07:54 | disposition home or self-care (01) ==
LOC: CDL 07:55
PROVIDERS: PCP Nurse Practitioner Family; Visit Provider Internal Medicine
DX: R06.02 Shortness of breath (principal)
CPT/HCPCS: 93017

== ENCOUNTER 2023-03-31 03:46 | Emergency (ER) | payer OTHER, SELFPAY ==
--- NOTE | 2023-03-31 03:53 | XRR_ITS ---
PROCEDURE INFORMATION: Exam: XR Chest Exam date and time: 03/31/2023 3:57 AM Age: 62 years old Clinical indication: Chest pressure; Patient HX: C/O chest pain TECHNIQUE: Imaging protocol: Radiologic exam of the chest. Views: 1 view. COMPARISON: CR XR chest 1V portable [id number] 12/25/2021 9:14 PM FINDINGS: Lungs: Unremarkable. No consolidation. Pleural spaces: Unremarkable. No pleural effusion. No pneumothorax. Heart/Mediastinum: Unremarkable. No cardiomegaly. Bones/joints: Unremarkable. XR/XR chest 1V portable [id number] IMPRESSION: No acute findings.
--- NOTE | 2023-03-31 03:56 | ECG_ITS ---
[facility] Test Date: 2023-03-31 Pat Name: Juanpablo Bales Department: Room: Gender: Male Wellness Instructor: : 1960 Requested By: Edis Álvarez Order Number: [id number] Jose Eduardo MD: Chris Carlos M.D. Measurements Intervals [place] Rate: 54 P: 59 DE: 148 QRS: 17 QRSD: 94 T: 50 QT: 408 QTc: 387 Interpretive Statements SINUS BRADYCARDIA Compared to ECG 12/26/2021 12:20:54 Sinus rhythm no longer present Electronically Signed On 04-01-2023 23:00:34 CDT by Chris Carlos M.D. [id number]
[2023-03-31 03:59] VITALS: BP 159/81; PULSE 64; RESP 17; TEMP 36.6; O2SAT 97; BMI 30.2
[2023-03-31 04:13] LABS: Basophils % 0.2 %; Eosinophils # 0.3 10^3/uL (0.0-0.8); Eosinophils % 5.2 %; Hematocrit 41.9 % (37-53); Lymphocytes # 1.6 10^3/uL (0.8-4.8); Lymphocytes % 32.1 %; Mean Corpuscular HGB Conc 34.1 g/dL (30-55); Mean Corpuscular Hemoglobin 30.4 pg (27-33); Mean Corpuscular Volume 89.1 fl (82-101); Mean Platelet Volume 9.8 fL (7.4-10.4); Monocytes # 0.4 10^3/uL (0.2-0.9); Monocytes % 8.3 %; Neutrophils # 2.72 10^3/uL (1.8-7.7); Nucleated Red Blood Cells % 0 %; Platelet Count 251 10^3/cmm (157-399); Red Cell Distribution Width 12.1 % (12.1-15.1); White Blood Count 5.04 10^3/uL (3.29-11.43)
--- NOTE | 2023-03-31 04:17 | W.ED.CHESTPA ---
HPI - Chest Pain General: Chief Complaint: Chest Pain Stated Complaint: Chest pains Time Seen by Provider: 03/31/23 04:05 History of Present Illness: 62-year-old male gentleman. He has a history of hypertension, and bradycardia. He presents with chest discomfort. Discomfort started earlier this morning. He believes it woke him from sleep. He is not overly short of breath. No nausea. Pain is a sharper pain that radiates from the front of his chest to the back. MD complaint: chest pain Associated symptoms: Deny abdominal pain, dyspnea, fever(s), nausea, palpitations or vomiting Review of Systems Const: Denies: fever(s) or chills ENMT: Denies: throat pain Card: Reports: chest pain; Denies: palpitations Resp: Denies: dyspnea, productive cough or non-productive cough GI: Denies: abdominal pain, nausea or vomiting Skin/Breast: Denies: rash Neuro: Denies: headache(s) PFSH ED PFSH: Medical History Delirium Fatigue No pertinent past medical history Surgical History No pertinent past surgical history Family History Brother Chronic pain Drug abuse Mother Hypertension Father Heart disease Sister AIDS Other Family history non-contributory Social History Smoking and tobacco status: current some day smoker (cigars) Alcohol intake: current Alcohol intake frequency: few times a month Alcohol type: beer Substance/Drug Use: never Household members: spouse Housing: House Physical Exam Const: COMMON NORMALS: no acute distress GENERAL APPEARANCE: cooperative; not ill appearing and not frail appearing HENMT: COMMON NORMALS: normocephalic, atraumatic and Normal external nose present HEAD & SCALP: normocephalic and atraumatic FACE & SINUS: normal facial exam and face symmetric NOSE: Normal external nose present Eye: COMMON NORMALS: Equal, round and reactive pupils present and EOMs intact bilaterally PUPIL: Yes Equal, round and reactive pupils present Neck/C-Spine: GENERAL: Yes trachea midline Chest: CHEST: Yes Symmetrical chest wall rise Resp: COMMON NORMALS: normal respiratory effort, No retractions, No use of accessory muscles and clear to auscultation bilaterally AUSCULTATION: clear to auscultation bilaterally Cardio: COMMON NORMALS: regular rhythm RATE: bradycardic RHYTHM: regular rhythm GI: COMMON NORMALS: Normal to inspection, nondistended, normoactive bowel sounds present Extremity: COMMON NORMALS: no pedal edema Neuro: AMINTA COMA SCALE: document GCS findings [place] coma scale eye opening: Spontaneous [place] coma scale verbal response: Orientated Aminta coma scale motor response: Obey commands Aminta coma scale total score: 15 SENSORY EXAM: Yes extremities (intact) Psych: COMMON NORMALS: speech normal SPEECH: Yes normal speech Skin: COMMON NORMALS: no rashes or lesions noted GENERAL SKIN EXAM: no rashes or lesions noted Course Vital Signs: Vital signs: Vital Signs Temperature 98 F 03/31/23 03:59 Pulse Rate 58 L 03/31/23 05:54 Respiratory Rate 15 03/31/23 05:54 Blood Pressure 144/80 03/31/23 05:54 Pulse Oximetry 94 03/31/23 05:54 MDM - Chest Pain Medical Decision Making Pain is improved after nitroglycerin and GI cocktail. Patient is resting comfortably. Mild bradycardia on the monitor. Blood pressures improved. Vitals are stable at this point. CBC is normal. Creatinine is baseline at 1.5. Troponin is 8. BNP is 36. Chest x-ray is negative. The patient will be allowed home. To return for any return of his pain. Lab Data 03/31/23 04:04 03/31/23 04:04 Radiology Impressions Chest X-Ray 03/31/23 03:53 IMPRESSION: No acute findings. Laboratory Results WBC 5.04 10^3/uL (3.29-11.43) 03/31/23 04:04 RBC 4.70 10^6/uL (3.85-5.65) 03/31/23 04:04 Hgb 14.30 g/dL (11.27-16.99) 03/31/23 04:04 Hct 41.9 % (37-53) 03/31/23 04:04 MCV 89.1 fl (82-101) 03/31/23 04:04 MCH 30.4 pg (27-33) 03/31/23 04:04 MCHC 34.1 g/dL (30-55) 03/31/23 04:04 RDW 12.1 % (12.1-15.1) 03/31/23 04:04 Plt Count 251 10^3/cmm (157-399) 03/31/23 04:04 MPV 9.8 fL (7.4-10.4) 03/31/23 04:04 Neut % (Auto) 54.0 % 03/31/23 04:04 Lymph % (Auto) 32.1 % 03/31/23 04:04 [place] % (Auto) 8.3 % 03/31/23 04:04 Eos % (Auto) 5.2 % 03/31/23 04:04 Baso % (Auto) 0.2 % 03/31/23 04:04 Neut # (Auto) 2.72 10^3/uL (1.8-7.7) 03/31/23 04:04 Lymph # (Auto) 1.6 10^3/uL (0.8-4.8) 03/31/23 04:04 [place] # (Auto) 0.4 10^3/uL (0.2-0.9) 03/31/23 04:04 Eos # (Auto) 0.3 10^3/uL (0.0-0.8) 03/31/23 04:04 Baso # (Auto) 0.0 10^3/uL (0.0-0.1) 03/31/23 04:04 Nucleated RBC % (auto) 0 % 03/31/23 04:04 Nucleated RBCs # 0.0 /100WBC 03/31/23 04:04 Sodium 141 mmol/L (136-145) 03/31/23 04:04 Potassium 4.2 mmol/L (3.5-5.1) 03/31/23 04:04 Chloride 103 mmol/L (98-107) 03/31/23 04:04 Carbon Dioxide 28 mmol/L (22-29) 03/31/23 04:04 Anion Gap 14.2 (5-19) 03/31/23 04:04 BUN 21 mg/dL (8-23) 03/31/23 04:04 Creatinine 1.5 mg/dL (0.7-1.2) H 03/31/23 04:04 GFR Calculation 47.3 mL/min (90-130) L 03/31/23 04:04 Glucose 129 mg/dL (65-115) H 03/31/23 04:04 Calculated Osmolality 297 mOsm/kg (285-295) H 03/31/23 04:04 Calcium 9.8 mg/dL (8.5-10.5) 03/31/23 04:04 Total Bilirubin 0.3 mg/dL (0.15-1.2) 03/31/23 04:04 AST 13 U/L (0-40) 03/31/23 04:04 ALT 16 U/L (0-41) 03/31/23 04:04 Alkaline Phosphatase 84 U/L (40-130) 03/31/23 04:04 Troponin T Baseline 8 ng/L (0-15) 03/31/23 04:04 NT-Pro-B Natriuret Pep 36 pg/mL (0-125) 03/31/23 04:04 Total Protein 7.0 g/dL (6.6-8.7) 03/31/23 04:04 Albumin 4.8 g/dL (3.5-5.2) 03/31/23 04:04 Globulin 2.2 g/dL (1.3-4.6) 03/31/23 04:04 XR interpretation done by ED provider, pending radiology final review Discharge Plan Discharge Patient Disposition: Home Clinical Impression: Chest pain, Bradycardia Condition: Stable Prescriptions: No Action amlodipine 10 mg tablet 10 mg PO DAILY Vitamin D PO cetirizine [Zyrtec] 10 mg Tablet 10 mg PO DAILY Qty: 0 Discharge Orders: Discharge ED (Routine); Ordered 03/31/23 Ordered By: Edis Ashley Referrals: Aury Sweet FNP [Primary Care Provider] - 1-3 days Patient Instructions: Chest Pain (ED), Hypertension (ED) Activity Restrictions/Additional Instructions: Return for return of chest discomfort, shortness of breath, syncope or passing out, any other concerning symptoms. Call your doctor on Sunday, let them know you are here. They will want to see you in follow-up. Coding Level of Care Code ED Blending Tank Tender for Ana Polanco
[2023-03-31 04:31] LABS: Troponin(5th) Baseline 8 ng/L (0-15)
[2023-03-31 04:44] LABS: Alanine Aminotransferase 16 U/L (0-41); Albumin Level 4.8 g/dL (3.5-5.2); Alkaline Phosphatase 84 U/L (40-130); Anion Gap 14.2 (5-19); Aspartate Amino Transferase 13 U/L (0-40); Blood Urea Nitrogen 21 mg/dL (8-23); Calcium 9.8 mg/dL (8.5-10.5); Carbon Dioxide 28 mmol/L (22-29); Chloride 103 mmol/L (98-107); Globulin 2.2 g/dL (1.3-4.6); Glomerular Filtration Rate 47.3 mL/min (90-130); Glucose 129 mg/dL (65-115); NT Pro B Type Natriuretic Pept 36 pg/mL (0-125); Osmolality Calculated 297 mOsm/kg (285-295); Potassium 4.2 mmol/L (3.5-5.1); Sodium 141 mmol/L (136-145); Total Bilirubin 0.3 mg/dL (0.15-1.2)
[2023-03-31 04:50] VITALS: BP 140/78; PULSE 56; RESP 22; O2SAT 95
[2023-03-31] MEDS: nitroglycerin 0.4 mg sublingual Tablet SUBLINGUAL (04:51)
[2023-03-31] MEDS: lidocaine 2% viscous 15 ML, aluminum-mag hydrox-simethicon 30 ML, sucralfate oral liq 1 GM PO (04:51)
[2023-03-31 05:54] VITALS: BP 144/80; PULSE 58; RESP 15; O2SAT 94
== END 2023-03-31 05:55 | disposition home or self-care (01) ==
PROVIDERS: Emergency Provider Emergency Medicine; PCP Nurse Practitioner Family
DX: R07.9 Chest pain, unspecified (principal); R00.1 Bradycardia, unspecified; F17.290 Nicotine dependence, other tobacco product, uncomplicated
CPT/HCPCS: 71045; 80053; 83880; 84484; 85025; 93005; 99285

== ENCOUNTER 2024-02-11 18:45 | Emergency (ER) | payer OTHER, SELFPAY ==
[2024-02-11 18:47] VITALS: BP 160/84; PULSE 73; TEMP 36.7; O2SAT 96; BMI 29.8
--- NOTE | 2024-02-11 19:15 | XRR_ITS ---
PROCEDURE INFORMATION: Exam: XR Chest Exam date and time: 02/11/2024 7:19 PM Age: 63 years old Clinical indication: Pain; Chest pressure TECHNIQUE: Imaging protocol: Radiologic exam of the chest. Views: 1 view. COMPARISON: CR XR chest 1V portable [id number] 03/31/2023 3:57 AM FINDINGS: Lungs: Unremarkable. No consolidation. Pleural spaces: Unremarkable. No pleural effusion. No pneumothorax. Heart/Mediastinum: Unremarkable. No cardiomegaly. Bones/joints: Unremarkable. XR/XR chest 1V portable [id number] IMPRESSION: No acute findings.
--- NOTE | 2024-02-11 19:16 | W.ED.ALLEREA ---
HPI - Allergic Reaction General: Chief complaint: Allergic Reaction Stated complaint: Stung by bee on right hand Time Seen by Provider: 02/11/24 19:04 Source: patient Mode of arrival: ambulatory Limitations: no limitations History of Present Illness: HPI narrative: Patient is a 63-year-old male presenting to the emergency department after taking EpiPen after being stung by a wasp. He states that with prior wasp stings, he gets severely short of breath and feels like his throat is closing, he felt this today after the wasp stung him and this prompted him to take EpiPen. He is noting at this time a headache, feeling weak, and some central chest pressure. He did take some Benadryl earlier as well. No other symptoms reported at this time. MD complaint: other (Stung by a wasp, took EpiPen) Onset (ago): minute(s) Associated symptoms: Deny abdominal pain, nausea or vomiting Treatment prior to arrival: benadryl Related Data Home Medications Medication Instructions Recorded Confirmed cetirizine 10 mg tablet (Zyrtec) 10 mg PO DAILY ##0 10/18/20 02/22/23 Vitamin D PO 02/23/22 02/22/23 amlodipine 10 mg tablet 10 mg PO DAILY 02/23/22 02/22/23 Allergies Allergy/AdvReac Type Severity Reaction Status Date / Time bee venom protein (honey bee) Allergy ALGY-Swell Verified 02/11/24 18:52 Lip/Tongue/Throat Review of Systems General: Reports: 10 or more systems reviewed and unremarkable except in HPI and below Const: Reports: fatigue; Denies: fever(s) or chills Eyes: Denies: change in vision ENMT: Denies: throat pain, ear or mastoid pain or nasal discharge Card: Reports: chest pain; Denies: palpitations, swelling of feet/ankles or lightheadedness Resp: Denies: dyspnea, productive cough or wheezing GI: Denies: abdominal pain, nausea, vomiting, diarrhea or constipation : Denies: flank pain, difficulty urinating, dysuria or urinary frequency Musc: Denies: neck pain, back pain or joint pain Skin/Breast: Denies: rash Neuro: Reports: headache(s); Denies: numbness in extremities All/Imm: Reports: other (Stung by a wasp, and took EpiPen) PFS ED PFSH: Medical History Fatigue Delirium No pertinent past medical history Surgical History No pertinent past surgical history Family History Brother Chronic pain Drug abuse Mother Hypertension Father Heart disease Sister AIDS Other Family history non-contributory Social History Smoking and tobacco/nicotine status: current some day tobacco/nicotine user (cigars) Alcohol intake: current Alcohol intake frequency: few times a month Alcohol type: beer Substance/Drug Use: never Household members: spouse Housing: House Physical Exam Const: COMMON NORMALS: no acute distress and no limitations GENERAL APPEARANCE: cooperative, comfortable and well developed ORIENTATION/CONSCIOUSNESS: Yes awake OTHER: Patient is breathing comfortably and appears nontoxic HENMT: COMMON NORMALS: normocephalic, atraumatic and hearing grossly normal bilaterally HEAD & SCALP: normocephalic and atraumatic OTHER: No angioedema or tongue or throat swelling noted at this time Eye: COMMON NORMALS: Equal, round and reactive pupils present, EOMs intact bilaterally and conjunctivae normal CONJUNCTIVA: Yes conjunctivae normal PUPIL: Yes Equal, round and reactive pupils present Neck/C-Spine: COMMON NORMALS: full ROM, supple and no JVD Resp: COMMON NORMALS: normal respiratory effort, No retractions, No use of accessory muscles and clear to auscultation bilaterally AUSCULTATION: clear to auscultation bilaterally Cardio: COMMON NORMALS: no JVD, regular rate, regular rhythm, No clicks present (Cardio), No murmurs present (Cardio) and No rub (Cardio) RATE: regular rate RHYTHM: regular rhythm Extremity: COMMON NORMALS: normal to inspection, full ROM and capillary refill normal Skin: COMMON NORMALS: no rashes or lesions noted GENERAL SKIN EXAM: no rashes or lesions noted Course Vital Signs: Vital signs: Vital Signs Temperature 98.0 F 02/11/24 18:47 Pulse Rate 67 02/11/24 19:22 Respiratory Rate 16 02/11/24 19:22 Blood Pressure 152/76 02/11/24 19:22 Pulse Oximetry 97 02/11/24 19:22 Oxygen Delivery Me thod Room Air 02/11/24 19:22 MDM - Allergic Reaction Medical Decision Making Patient presented after sticking himself with an EpiPen after allergic symptoms following a wasp sting. History of previous in the past, states he did this more empirically, however was having some breathing issues somewhat. He arrived because he states last time he was told to come to the ER for observation. However he was stating he was having some chest pressure and a headache when he got here. Because of this, EKG, x-ray, and basic labs were obtained and all were negative. Informed patient to continue monitoring his symptoms at home and take Benadryl. Strict return precautions are given and he is to follow-up with primary care later this week. Lab Data 02/11/24 19:30 02/11/24 19:30 Radiology Impressions Chest X-Ray 02/11/24 19:15 IMPRESSION: No acute findings. Laboratory Results WBC 5.21 10^3/uL (3.29-11.43) 02/11/24 19:30 RBC 4.27 10^6/uL (3.85-5.65) 02/11/24 19:30 Hgb 13.10 g/dL (11.27-16.99) 02/11/24 19: Hct 37.5 % (37-53) 02/11/24 19: MCV 87.8 fl (82-101) 02/11/24 19: MCH 30.7 pg (27-33) 02/11/24: MCHC 34.9 g/dL (30-55) 02/11/24 19: RDW 12.3 % (12.1-15.1) 02/11/24 19: Plt Count 255 10^3/cmm (157-399) 02/11/24 19: MPV 9.4 fL (7.4-10.4) 02/11/24 19: Neut % (Auto) 66.0 % 02/11/24 19:30 Lymph % (Auto) 21.5 % 02/11/24 19:30 [place] % (Auto) 7.7 % 02/11/24 19:30 Eos % (Auto) 4.2 % 02/11/24 19:30 Baso % (Auto) 0.2 % 02/11/24 19:30 Neut # (Auto) 3.44 10^3/uL (1.8-7.7) 02/11/24 19: Lymph # (Auto) 1.1 10^3/uL (0.8-4.8) 02/11/24: [place] # (Auto) 0.4 10^3/uL (0.2-0.9) 02/11/24: Eos # (Auto) 0.2 10^3/uL (0.0-0.8) 02/11/24: Baso # (Auto) 0.0 10^3/uL (0.0-0.1) 02/11/24: Nucleated RBC % (auto) 0 % 02/11/24: Nucleated RBCs # 0.0 /100WBC 02/11/24: Sodium 141 mmol/L (136-145) 02/11/24: Potassium 4.2 mmol/L (3.5-5.1) 02/11/24: Chloride 104 mmol/L (98-107) 02/11/24: Carbon Dioxide 25 mmol/L (22-29) 02/11/24: Anion Gap 16.2 (5-19) 02/11/24: BUN 18 mg/dL (8-23) 02/11/24: Creatinine 1.5 mg/dL (0.7-1.2) H 02/11/24: GFR Calculation 47.1 mL/min (90-130) L 02/11/24: Glucose 111 mg/dL (65-115) 02/11/24: Calculated Osmolality 295 mOsm/kg (285-295) 02/11/24: Calcium 9.8 mg/dL (8.5-10.5) 02/11/24: Total Bilirubin 0.3 mg/dL (0.15-1.2) 02/11/24 19: AST 22 U/L (0-40) 02/11/24: ALT 27 U/L (0-41) 02/11/24: Alkaline Phosphatase 87 U/L (40-130) 08/19/24 19:30 Troponin T Baseline 12 ng/L (0-15) 02/11/24 19:30 Total Protein 7.4 g/dL (6.6-8.7) 02/11/24 19:30 Albumin 5.0 g/dL (3.5-5.2) 02/11/24 19:30 Globulin 2.4 g/dL (1.3-4.6) 02/11/24 19:30 All radiology interpretation(s) finalized by discharge Discharge Plan Discharge Patient Disposition: Home Clinical Impression: Accidental wasp sting, Allergic reaction Condition: Stable Prescriptions: No Action amlodipine 10 mg tablet 10 mg PO DAILY Vitamin D PO cetirizine [Zyrtec] 10 mg Tablet 10 mg PO DAILY Qty: 0 Discharge Orders: Discharge ED (Routine); Ordered 02/11/24 Ordered By: Jeffrey Marinelli Referrals: Aury Sweet FNP [Primary Care Provider] - Discharge Diet: Usual diet Discharge Activity: Increase activity as tolerated Patient Instructions: Allergic Reaction Activity Restrictions/Additional Instructions: Take Benadryl at home. Monitor for any new or worsening symptoms and return for reevaluation as needed. Please follow-up with your primary care provider as discussed. Coding Level of Care Code ED Car Inspection And Repair Manager for Ana Polanco
[2024-02-11 19:22] VITALS: BP 152/76; PULSE 67; RESP 16; O2SAT 97
--- NOTE | 2024-02-11 19:33 | ECG_ITS ---
[facility] Test Date: 2024-02-11 Pat Name: Juanpablo Bales Department: Room: Gender: Male Energy Director: : 1960 Requested By: Jeffrey Marshall Order Number: [id number] Jose Eduardo MD: Otf Gordon M.D. Measurements Intervals [place] Rate: 62 P: 47 UT: 153 QRS: 43 QRSD: 97 T: 41 QT: 371 QTc: 379 Interpretive Statements SINUS RHYTHM Compared to ECG 03/31/2023 03:56:30 Sinus bradycardia no longer present Electronically Signed On 02-12-2024 23:26:37 CDT by Otf Gordon M.D. [id number]
[2024-02-11 19:43] LABS: Basophils % 0.2 %; Eosinophils # 0.2 10^3/uL (0.0-0.8); Eosinophils % 4.2 %; Hematocrit 37.5 % (37-53); Lymphocytes # 1.1 10^3/uL (0.8-4.8); Lymphocytes % 21.5 %; Mean Corpuscular HGB Conc 34.9 g/dL (30-55); Mean Corpuscular Hemoglobin 30.7 pg (27-33); Mean Corpuscular Volume 87.8 fl (82-101); Mean Platelet Volume 9.4 fL (7.4-10.4); Monocytes # 0.4 10^3/uL (0.2-0.9); Monocytes % 7.7 %; Neutrophils # 3.44 10^3/uL (1.8-7.7); Nucleated Red Blood Cells % 0 %; Platelet Count 255 10^3/cmm (157-399); Red Blood Count 4.27 10^6/uL (3.85-5.65); Red Cell Distribution Width 12.3 % (12.1-15.1); White Blood Count 5.21 10^3/uL (3.29-11.43)
[2024-02-11 20:03] LABS: Troponin(5th) Baseline 12 ng/L (0-15)
[2024-02-11 20:06] LABS: Alanine Aminotransferase 27 U/L (0-41); Alkaline Phosphatase 87 U/L (40-130); Anion Gap 16.2 (5-19); Aspartate Amino Transferase 22 U/L (0-40); Blood Urea Nitrogen 18 mg/dL (8-23); Calcium 9.8 mg/dL (8.5-10.5); Carbon Dioxide 25 mmol/L (22-29); Chloride 104 mmol/L (98-107); Creatinine Clr Calc Pharmacy 47.2115; Globulin 2.4 g/dL (1.3-4.6); Glomerular Filtration Rate 47.1 mL/min (90-130); Glucose 111 mg/dL (65-115); Osmolality Calculated 295 mOsm/kg (285-295); Potassium 4.2 mmol/L (3.5-5.1); Sodium 141 mmol/L (136-145); Total Bilirubin 0.3 mg/dL (0.15-1.2); Total Protein 7.4 g/dL (6.6-8.7)
[2024-02-11 20:20] VITALS: BP 161/83; PULSE 66; RESP 16; TEMP 36.7; O2SAT 98
== END 2024-02-11 20:21 | disposition home or self-care (01) ==
PROVIDERS: Emergency Provider Physician Assistant; PCP Nurse Practitioner Family
DX: T63.461A Toxic effect of venom of wasps, accidental (unintentional), initial encounter (principal); F17.290 Nicotine dependence, other tobacco product, uncomplicated
CPT/HCPCS: 36415; 71045; 80053; 84484; 85025; 93005; 99285

== ENCOUNTER 2024-08-18 09:13 | Outpatient (CLI) | payer OTHER, SELFPAY ==
--- NOTE | 2024-08-18 09:16 | MR_ITS ---
WS: [id number] MRI LEFT KNEE HISTORY: L KNEE PAIN COMPARISON: 07/08/2024 Anterior cruciate ligament: Intact. Posterior cruciate ligament: Intact. Medial collateral ligament: Intact. Posterior lateral corner structures: Intact. Medial menisci: Intermediate signal in the posterior horn extending towards the meniscal root. Intermediate signal extends to involve both the superior and intra-articular surfaces. This is more likely intrasubstance degeneration than a tear. Lateral meniscus: Intact. Normal signal, size and shape. Extensor mechanism: Quadriceps tendon is intact. Increased T2 signal thickening involving the proximal patellar tendon. There is also patellar enthesopathy. Associated adjacent soft tissue edema by the abnormal patellar tendon. Fluid and soft tissue: No joint effusion. Tiny Downey's cyst. Osseous and articular structures: Patellofemoral compartment: Normal. Medial compartment: Mild narrowing of the medial compartment. No marrow edema. Marginal osteophytes. Lateral compartment: Mild narrowing of the lateral compartment. No marrow edema. MR/MR knee LT wo con* [id number] IMPRESSION: 1. Moderate proximal patellar tendinopathy. There is no full-thickness tear. A ssociated enthesopathy with the tendinopathy. 2. Mild associated prepatellar edema. 3. Intrasubstance degeneration in the posterior horn medial meniscus. 4. Mild medial and lateral compartment narrowing.
--- NOTE | 2024-08-18 09:38 | XR_ITS ---
WS: [id number] Orbits, 4 views. HISTORY: Evaluate for metallic foreign body prior to MRI. 4 views are submitted. No metallic foreign bodies are identified. No destructive bone lesions. XR/[place] [id number] IMPRESSION: No metallic foreign bodies over the orbits.
== END 2024-08-18 09:14 | disposition home or self-care (01) ==
LOC: RAD 09:15
PROVIDERS: PCP Nurse Practitioner Family; Visit Provider Nurse Practitioner Family
DX: M25.562 Pain in left knee (principal); Z87.898 Personal history of other specified conditions; R93.6 Abnormal findings on diagnostic imaging of limbs; M76.9 Unspecified enthesopathy, lower limb, excluding foot; M23.222 Derangement of posterior horn of medial meniscus due to old tear or injury, left knee; M25.762 Osteophyte, left knee
CPT/HCPCS: 70030; 73721